=== PATIENT | male | born 1990 | race Caucasian/White ===

== ENCOUNTER 2017-12-08 15:30 | Outpatient (RCR) | payer SELFPAY ==
[2017-11-24 15:05] VITALS: BP 118/62; PULSE 70; RESP 18; TEMP 37.1
--- NOTE | 2017-11-24 16:14 | PCM.WC.HP ---
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 Has been applying neosporin and dry dressing daily. Thought originally that the area was present due to a bad sunburn, however ulcer is a classic venous leg ulcer. Pt has a family history of varicose veins including brothers and parents. Has never had vascular testing. Did have x-rays, and we will get the results of those from the outside facility. Past Medical History Past Medical History: Chronic Problems Localized edema (Chronic) Surgical History: noncontributory Allergies/Adverse Reactions: Allergies amoxicillin [From Augmentin] Adverse Reaction (Verified 11/24/17 15:28) Unknown clavulanic acid [From Augmentin] Adverse Reaction (Verified 11/24/17 15:28) Unknown Home Medications: Ambulatory Orders Medication Instructions Recorded Citalopram [Celexa] 40 mg PO DAILY 11/24/17 Lives: With Family Smoking Status: Never smoker Tobacco Use: Non-smoker Alcohol: Rare Drugs: None Review of Systems Constitutional: Denies: Chills, Fever, Weight Change Eyes: Denies: Pain, Vision Change HEENT: Denies: Difficulty Hearing, Difficulty Swallowing, Sinus Congestion Cardiovascular: Reports: Edema - RLE. Denies: Chest Pain, Palpitations Respiratory: Denies: Cough, Shortness of Breath Gastrointestinal: Denies: Diarrhea, Nausea, Vomiting Genitourinary: Denies: Dysuria, Hematuria Skin: Reports: Wounds - R calf Psychiatric: Reports: Anxiety Endocrine: Denies: Heat/ Cold Intolerance, Polydipsia, Polyuria Hematologic/ Lymphatic: Denies: Easy Bruising, Easy Bleeding, Hx of blood clot - Physical Exam Vital Signs Temp Pulse Resp BP 98.8 F 70 18 118/62 11/24/17 15:05 11/24/17 15:05 11/24/17 15:05 11/24/17 15:05 General: Alert, Oriented x3, Cooperative, No apparent distress Abdomen: Soft, Non Tender, Non-Distended Extremities: No clubbing, No cyanosis, Capillary Refill Less than 3 Seconds, No Calf Tenderness, Edema - RLE, Peripheral Pulses Normal Skin: Ulcer/ Wound - R calf x 2 with no erythema, no calor, no purulent drainage, no malodor, no TTP of ulcer or reyna-ulcer area. No clinical signs of acute bacterial infection noted. See wound/edema assessment below. Wound Measurements and Assessment WC - Nurse 1 - General Ulcer Measurement Start: 11/24/17 15:05 Freq: Status: Active Protocol: Activity Type Activity Date Activity User E-Sign Co-Sign Detail Recorded Client Recorded Date Recorded By Document 11/24/17 15:05 DL [id number] 11/24/17 15:20 DL 11/24/17 15:05 Wound Center Nurse 1 [Ulcer Assessment Protocol: BILL.WD.LOC] #2 R Med Bell inf -Current Size (cm) - Length 2 -Current Size (cm) - Width 1.4 -Current Size (cm) - Depth 0.2 -Total Square Cm 2.8 -Photo Taken Yes -Exudate Amt Medium (34-66%) -Exudate Type Sanguineous -Wound Margin Distinct, Outline Attached -Granulation Amt Medium (34-66%) -Granulation Quality Red -Necrosis Amt Medium (34-66%) -Necrotic Tissue Type Adherent Slough -Structure Exposed N/A -Texture (Reyna-wound Skin Appearance) Scarring -Moisture (Reyna-wound Skin Appearance No Abnormality ) -Color (Reyna-wound Skin Appearance) Erythema -Temperature (Reyna-wound Skin No Abnormality Appearance) (Pt Warm) -Ulcer Cleansing Wound Cleanser -Foul Odor after Cleansing No -Anesthetic Used 4% Lidocaine Solution #1 R Med Sup -Current Size (cm) - Length 0.7 -Current Size (cm) - Width 7 -Current Size (cm) - Depth 0.1 -Total Square Cm 4.9 -Photo Taken Yes -Exudate Amt Small (1-33%) -Exudate Type Serosanguineous -Wound Margin Distinct, Outline Attached -Granulation Amt None Present (0 %) -Necrosis Amt Large (67-100%) -Necrotic Tissue Type Adherent Slough -Structure Exposed N/A -Texture (Reyna-wound Skin Appearance) Scarring -Moisture (Reyna-wound Skin Appearance No Abnormality ) -Color (Reyna-wound Skin Appearance) Erythema Rubor -Temperature (Reyna-wound Skin No Abnormality Appearance) (Pt Warm) -Ulcer Cleansing Wound Cleanser -Foul Odor after Cleansing No -Anesthetic Used 4% Lidocaine Solution [Edema Assessment] -Right Calf (cm) 32.9 -Right Ankle (cm) 21.1 -Left Calf (cm) 31.7 -Left Ankle (cm) 20.2 Musculoskeletal: No Tenderness to Palpation of Joints or Extremities, No Muscle Wasting Neurological: Deep Tendon Reflexes 2+/4 and Symmetrical, Neuro grossly intact, Motor Exam 5/5 strength throughout, Muscle tone normal, Sensory exam intact to light touch and pain, Coordination normal, Gait narrow based and stable Psych/Mental Status: Alert and oriented to time, place, person, mood and affect - wnl Debridement Note Wound debrided: R calf x 2 Laterality: Right Wound Grade/Stage: full thickness VLU Type of Debridement: Excisional debridement Anesthesia Used: 4% Lidocaine Solution Depth: Down to and including healthy tissue, in the subcutaneous layer Percentage of wound debrided: 100 Instrument Used: 3mm curette Tissue Removed: fibrous slough Severity: Fat Layer Exposed Amount of bleeding with debridement: Mild Bleeding Controlled with: Pressure, Compression and gauze Patient tolerated procedure well Assessment/Plan Active Problems 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 SQ/excisional debridment R calf ulcers x 2 performed as above. Venous duplex RLE ordered. Screening MADISON to be done in clinic next week. Stop neosporin, start clau, adaptic, dry dressing 3x/week. Keep dry in shower, wash separately with dsg changes. Discussed importance of leg elevation, avoiding idle sitting or standing, increased activity, and taking anti-inflammatories for pain. Pt is not overweight. Venous insufficiency is likely hereditary. Moderate spandagrip until after vascular testing. Pt will need referral to vascular specialist and/or compression stockings of at least 20-30 mmHg after ulcer heals. Monitor for redness, pus, malodor, warmth, pain, inc swelling as well as for N/V/F/C/calf pain/chest pain/SOB and go to the ED with these.
--- NOTE | 2017-11-24 16:25 | HP.PCM_ITS ---
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 Has been applying neosporin and dry dressing daily. Thought originally that the area was present due to a bad sunburn, however ulcer is a classic venous leg ulcer. Pt has a family history of varicose veins including brothers and parents. Has never had vascular testing. Did have x-rays, and we will get the results of those from the outside facility. Past Medical History Past Medical History: Chronic Problems Localized edema (Chronic) Surgical History: noncontributory Allergies/Adverse Reactions: Allergies amoxicillin [From Augmentin] Adverse Reaction (Verified 11/24/17 15:28) Unknown clavulanic acid [From Augmentin] Adverse Reaction (Verified 11/24/17 15:28) Unknown Home Medications: Ambulatory Orders Medication Instructions Recorded Citalopram [Celexa] 40 mg PO DAILY 11/24/17 Lives: With Family Smoking Status: Never smoker Tobacco Use: Non-smoker Alcohol: Rare Drugs: None Review of Systems Constitutional: Denies: Chills, Fever, Weight Change Eyes: Denies: Pain, Vision Change HEENT: Denies: Difficulty Hearing, Difficulty Swallowing, Sinus Congestion Cardiovascular: Reports: Edema - RLE. Denies: Chest Pain, Palpitations Respiratory: Denies: Cough, Shortness of Breath Gastrointestinal: Denies: Diarrhea, Nausea, Vomiting Genitourinary: Denies: Dysuria, Hematuria Skin: Reports: Wounds - R calf Psychiatric: Reports: Anxiety Endocrine: Denies: Heat/ Cold Intolerance, Polydipsia, Polyuria Hematologic/ Lymphatic: Denies: Easy Bruising, Easy Bleeding, Hx of blood clot - Physical Exam Vital Signs Temp Pulse Resp BP 98.8 F 70 18 118/62 11/24/17 15:05 11/24/17 15:05 11/24/17 15:05 11/24/17 15:05 General: Alert, Oriented x3, Cooperative, No apparent distress Abdomen: Soft, Non Tender, Non-Distended Extremities: No clubbing, No cyanosis, Capillary Refill Less than 3 Seconds, No Calf Tenderness, Edema - RLE, Peripheral Pulses Normal Skin: Ulcer/ Wound - R calf x 2 with no erythema, no calor, no purulent drainage , no malodor, no TTP of ulcer or reyna-ulcer area. No clinical signs of acute bacterial infection noted. See wound/edema assessment below. Wound Measurements and Assessment WC - Nurse 1 - General Ulcer Measurement Start: 11/24/17 15:05 Freq: Status: Active Protocol: Activity Type Activity Date Activity User E-Sign Co-Sign Detail Recorded Client Recorded Date Recorded By Document 11/24/17 15:05 DL [id number] 11/24/17 15:20 DL 11/24/17 15:05 Wound Center Nurse 1 [Ulcer Assessment Protocol: BILL.WD.LOC] #2 R Med Bell inf -Current Size (cm) - Length 2 -Current Size (cm) - Width 1.4 -Current Size (cm) - Depth 0.2 -Total Square Cm 2.8 -Photo Taken Yes -Exudate Amt Medium (34-66%) -Exudate Type Sanguineous -Wound Margin Distinct, Outline Attached -Granulation Amt Medium (34-66%) -Granulation Quality Red -Necrosis Amt Medium (34-66%) -Necrotic Tissue Type Adherent Slough -Structure Exposed N/A -Texture (Reyna-wound Skin Appearance) Scarring -Moisture (Reyna-wound Skin Appearance No Abnormality ) -Color (Reyna-wound Skin Appearance) Erythema -Temperature (Reyna-wound Skin No Abnormality Appearance) (Pt Warm) -Ulcer Cleansing Wound Cleanser -Foul Odor after Cleansing No -Anesthetic Used 4% Lidocaine Solution #1 R Med Sup -Current Size (cm) - Length 0.7 -Current Size (cm) - Width 7 -Current Size (cm) - Depth 0.1 -Total Square Cm 4.9 -Photo Taken Yes -Exudate Amt Small (1-33%) -Exudate Type Serosanguineous -Wound Margin Distinct, Outline Attached -Granulation Amt None Present (0 %) -Necrosis Amt Large (67-100%) -Necrotic Tissue Type Adherent Slough -Structure Exposed N/A -Texture (Reyna-wound Skin Appearance) Scarring -Moisture (Reyna-wound Skin Appearance No Abnormality ) -Color (Reyna-wound Skin Appearance) Erythema Rubor -Temperature (Reyna-wound Skin No Abnormality Appearance) (Pt Warm) -Ulcer Cleansing Wound Cleanser -Foul Odor after Cleansing No -Anesthetic Used 4% Lidocaine Solution [Edema Assessment] -Right Calf (cm) 32.9 -Right Ankle (cm) 21.1 -Left Calf (cm) 31.7 -Left Ankle (cm) 20.2 Musculoskeletal: No Tenderness to Palpation of Joints or Extremities, No Muscle Wasting Neurological: Deep Tendon Reflexes 2+/4 and Symmetrical, Neuro grossly intact, Motor Exam 5/5 strength throughout, Muscle tone normal, Sensory exam intact to light touch and pain, Coordination normal, Gait narrow based and stable Psych/Mental Status: Alert and oriented to time, place, person, mood and affect - wnl Debridement Note Wound debrided: R calf x 2 Laterality: Right Wound Grade/Stage: full thickness VLU Type of Debridement: Excisional debridement Anesthesia Used: 4% Lidocaine Solution Depth: Down to and including healthy tissue, in the subcutaneous layer Percentage of wound debrided: 100 Instrument Used: 3mm curette Tissue Removed: fibrous slough Severity: Fat Layer Exposed Amount of bleeding with debridement: Mild Bleeding Controlled with: Pressure, Compression and gauze Patient tolerated procedure well Assessment/Plan Active Problems 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 SQ/excisional debridment R calf ulcers x 2 performed as above. Venous duplex RLE ordered. Screening MADISON to be done in clinic next week. Stop neosporin, start clau, adaptic, dry dressing 3x/week. Keep dry in shower, wash separately with dsg changes. Discussed importance of leg elevation, avoiding idle sitting or standing, increased activity, and taking anti- inflammatories for pain. Pt is not overweight. Venous insufficiency is likely hereditary. Moderate spandagrip until after vascular testing. Pt will need referral to vascular specialist and/or compression stockings of at least 20-30 mmHg after ulcer heals. Monitor for redness, pus, malodor, warmth, pain, inc swelling as well as for N/V/F/C/calf pain/chest pain/SOB and go to the ED with these.
[2017-12-01 13:02] VITALS: BP 118/65; PULSE 101; RESP 16; TEMP 36.9
--- NOTE | 2017-12-01 15:03 | PCM.WC.PN ---
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 Has been applying neosporin and dry dressing daily. Thought originally that the area was present due to a bad sunburn, however ulcer is a classic venous leg ulcer. Pt has a family history of varicose veins including brothers and parents. Has never had vascular testing. Did have x-rays, and we will get the results of those from the outside facility. 12/01-Ulcers improved. Tolerated moderate spandagrip size E and clau well. Refuses to get venous duplex for unknown reasons. Denies pus, malodor, warmth, pain. Denies N/V/F/C. Progress of Wound: Improved. - Physical Exam Vital Signs Temp Pulse Resp BP 98.4 F 101 H 16 118/65 12/01/17 13:02 12/01/17 13:02 12/01/17 13:02 12/01/17 13:02 General: Alert, Oriented x3, Cooperative, No apparent distress Skin: Ulcer/ Wound - R calf with no erythema, no malodor, no pus, no TTP, no warmth. No clinical signs of acute bacterial infection noted. See wound/edema assessment below. Wound Measurements and Assessment BILL - Nurse 1 - General Ulcer Measurement Start: 11/24/17 15:05 Freq: Status: Active Protocol: Activity Type Activity Date Activity User E-Sign Co-Sign Detail Recorded Client Recorded Date Recorded By Document 12/01/17 13:02 DV [id number] 12/01/17 13:10 DV 12/01/17 13:02 Wound Center Nurse 1 [Ulcer Assessment Protocol: BILL.WD.LOC] #2 Right Venegas-Inferior -Combined with other wound No -Current Size (cm) - Length 1.8 -Current Size (cm) - Width 1.1 -Current Size (cm) - Depth 0.2 -Total Square Cm 1.98 -Photo Taken No -Tunneling No -Circular Undermining No -Classification - Thickness Full Thickness without Exposed Support Structure -Exudate Amt Small (1-33%) -Exudate Type Serosanguineous -Wound Margin Distinct, Outline Attached -Granulation Amt Small (1-33%) -Granulation Quality Red -Slough/Fibrin Yes -Necrosis Amt Medium (34-66%) -Necrotic Tissue Type Adherent Slough -Structure Exposed None/Limited to Skin Breakdown -Texture (Reyna-wound Skin Appearance) Assessed Scarring -Moisture (Reyna-wound Skin Appearance Assessed ) Weeping -Color (Reyna-wound Skin Appearance) Assessed Hemosiderin Staining -Temperature (Reyna-wound Skin No Abnormality Appearance) (Pt Warm) -Ulcer Cleansing Rinsed/ Irrigated with Saline -Foul Odor after Cleansing No -Anesthetic Used 4% Lidocaine Solution #1 Right Venegas- Superior -Combined with other wound No -Current Size (cm) - Length 0.4 -Current Size (cm) - Width 0.2 -Current Size (cm) - Depth 0.1 -Total Square Cm 0.08 -Photo Taken No -Epithelialization None Present -Tunneling No -Undermining/Tunneling No -Circular Undermining No -Classification - Thickness Full Thickness without Exposed Support Structure -Exudate Amt Small (1-33%) -Exudate Type Serosanguineous -Wound Margin Distinct, Outline Attached -Granulation Amt None Present (0 %) -Granulation Quality N/A -Slough/Fibrin Yes -Necrosis Amt Small (1-33%) -Necrotic Tissue Type Adherent Slough -Structure Exposed None/Limited to Skin Breakdown -Texture (Reyna-wound Skin Appearance) Assessed Scarring -Moisture (Reyna-wound Skin Appearance Assessed ) Weeping -Color (Reyna-wound Skin Appearance) Assessed Hemosiderin Staining -Temperature (Reyna-wound Skin No Abnormality Appearance) (Pt Warm) -Tenderness on Palpation (Reyna-wound No Skin Appearance) -Ulcer Cleansing Rinsed/ Irrigated with Saline -Foul Odor after Cleansing No -Anesthetic Used 4% Lidocaine Solution [Edema Assessment] -Lower Limb Edema Present No -Right Calf (cm) 31.0 -Right Ankle (cm) 19.6 WC - Nurse 2 - General Ulcer CM Notes Start: 11/24/17 15:05 Freq: Status: Active Protocol: Activity Type Activity Date Activity User E-Sign Co-Sign Detail Recorded Client Recorded Date Recorded By Document 12/01/17 13:32 MW [id number] 12/01/17 13:35 MW 12/01/17 13:32 Wound Center Nurse 2 [Procedure/Treatment] #2 Right Venegas-Inferior -Time 13:32 -Correct Patient Yes -Correct Side, Site, Position Yes -Correct Procedure Yes -Procedure Performed Yes -Type of Procedure Debridement -Clinical Debridement Subcutaneous -Post Debridement Size (cm) - Length 1.6 -Post Debridement Size (cm) - Width 1.2 -Post Debridement Size (cm) - Depth 0.2 -Total Square Cm 1.92 -Wound/Ulcer Outcome Not Healed -Ulcer Cleansing Rinsed/ Irrigated with Saline -Foul Odor after Cleansing No -Type of bioengineered Tissue Apligraf -Bleeding Controlled with Pressure -Treatment Response Procedure Tolerated Well #1 Right Venegas- Superior -Time 13:32 -Correct Patient Yes -Correct Side, Site, Position Yes -Correct Procedure Yes -Procedure Performed Yes -Type of Procedure Debridement -Clinical Debridement Subcutaneous -Post Debridement Size (cm) - Length 0.5 -Post Debridement Size (cm) - Width 0.2 -Post Debridement Size (cm) - Depth 0.1 -Total Square Cm 0.10 -Wound/Ulcer Outcome Not Healed -Ulcer Cleansing Rinsed/ Irrigated with Saline -Foul Odor after Cleansing No -Bioengineered Tissue No -Cetacaine [place] No -Bleeding Controlled with Pressure -Treatment Response Procedure Tolerated Well [See Physician Procedure note for Specifics] Pain Scale: 0-10 Numeric [Pain] -Is Patient Pain Free? Yes Debridement Note Post-Debridement Measurements/Treatment WC - Nurse 2 - General Ulcer CM Notes Start: 11/24/17 15:05 Freq: Status: Active Protocol: Activity Type Activity Date Activity User E-Sign Co-Sign Detail Recorded Client Recorded Date Recorded By Document 11/24/17 15:58 MW [id number] 11/24/17 16:14 MW Document 12/01/17 13:32 MW [id number] 12/01/17 13:35 MW 11/24/17 12/01/17 15:58 13:32 Wound Center Nurse 2 #2 Right Venegas-Inferior -Time 15:59 13:32 -Correct Patient Yes Yes -Correct Side, Site, Position Yes Yes -Correct Procedure Yes Yes -Procedure Performed Yes Yes -Type of Procedure Debridement Debridement -Clinical Debridement Subcutaneous Subcutaneous -Post Debridement Size (cm) - Length 0.6 1.6 -Post Debridement Size (cm) - Width 0.4 1.2 -Post Debridement Size (cm) - Depth 0.1 0.2 -Total Square Cm 0.24 1.92 -Wound/Ulcer Outcome Not Healed Not Healed -Ulcer Cleansing Rinsed/ Rinsed/ Irrigated with Irrigated with Saline Saline -Foul Odor after Cleansing No No -Bioengineered Tissue No -Type of bioengineered Tissue Apligraf -Cetacaine [place] No -Bleeding Controlled with Pressure Pressure -Treatment Response Procedure Procedure Tolerated Well Tolerated Well #1 Right Venegas- Superior -Time 16:01 13:32 -Correct Patient Yes Yes -Correct Side, Site, Position Yes Yes -Correct Procedure Yes Yes -Procedure Performed Yes Yes -Type of Procedure Debridement Debridement -Clinical Debridement Subcutaneous Subcutaneous -Post Debridement Size (cm) - Length 2.2 0.5 -Post Debridement Size (cm) - Width 1.5 0.2 -Post Debridement Size (cm) - Depth 0.2 0.1 -Total Square Cm 3.30 0.10 -Wound/Ulcer Outcome Not Healed Not Healed -Ulcer Cleansing Rinsed/ Rinsed/ Irrigated with Irrigated with Saline Saline -Foul Odor after Cleansing No No -Bioengineered Tissue No No -Cetacaine [place] No No -Bleeding Controlled with Pressure Pressure -Treatment Response Procedure Procedure Tolerated Well Tolerated Well Pain Scale: 0-10 Numeric Is Patient Pain Free? 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 Patient refusing all vascular testing. Improving. Cont clau, adaptic, dry dressing 3x/week. Keep dry in shower, wash separately with dsg changes. Discussed importance of leg elevation, avoiding idle sitting or standing, increased activity, and taking anti-inflammatories for pain. Pt is not overweight. Venous insufficiency is likely hereditary. Increase to size D spandagrip. Pt will need referral to vascular specialist and/or compression stockings of at least 20-30 mmHg after ulcer heals. Pt currently refusing vascular testing. Monitor for redness, pus, malodor, warmth, pain, inc swelling as well as for N/V/F/C/calf pain/chest pain/SOB and go to the ED with these.
--- NOTE | 2017-12-01 15:09 | PN.PCM_ITS ---
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 Has been applying neosporin and dry dressing daily. Thought originally that the area was present due to a bad sunburn, however ulcer is a classic venous leg ulcer. Pt has a family history of varicose veins including brothers and parents. Has never had vascular testing. Did have x-rays, and we will get the results of those from the outside facility. 12/01-Ulcers improved. Tolerated moderate spandagrip size E and clau well. Refuses to get venous duplex for unknown reasons. Denies pus, malodor, warmth, pain. Denies N/V/F/C. Progress of Wound: Improved. - Physical Exam Vital Signs Temp Pulse Resp BP 98.4 F 101 H 16 118/65 12/01/17 13:02 12/01/17 13:02 12/01/17 13:02 12/01/17 13:02 General: Alert, Oriented x3, Cooperative, No apparent distress Skin: Ulcer/ Wound - R calf with no erythema, no malodor, no pus, no TTP, no warmth. No clinical signs of acute bacterial infection noted. See wound/edema assessment below. Wound Measurements and Assessment BILL - Nurse 1 - General Ulcer Measurement Start: 11/24/17 15:05 Freq: Status: Active Protocol: Activity Type Activity Date Activity User E-Sign Co-Sign Detail Recorded Client Recorded Date Recorded By Document 12/01/17 13:02 DV [id number] 12/01/17 13:10 DV 12/01/17 13:02 Wound Center Nurse 1 [Ulcer Assessment Protocol: BILL.WD.LOC] #2 Right Venegas-Inferior -Combined with other wound No -Current Size (cm) - Length 1.8 -Current Size (cm) - Width 1.1 -Current Size (cm) - Depth 0.2 -Total Square Cm 1.98 -Photo Taken No -Tunneling No -Circular Undermining No -Classification - Thickness Full Thickness without Exposed Support Structure -Exudate Amt Small (1-33%) -Exudate Type Serosanguineous -Wound Margin Distinct, Outline Attached -Granulation Amt Small (1-33%) -Granulation Quality Red -Slough/Fibrin Yes -Necrosis Amt Medium (34-66%) -Necrotic Tissue Type Adherent Slough -Structure Exposed None/Limited to Skin Breakdown -Texture (Reyna-wound Skin Appearance) Assessed Scarring -Moisture (Reyna-wound Skin Appearance Assessed ) Weeping -Color (Reyna-wound Skin Appearance) Assessed Hemosiderin Staining -Temperature (Reyna-wound Skin No Abnormality Appearance) (Pt Warm) -Ulcer Cleansing Rinsed/ Irrigated with Saline -Foul Odor after Cleansing No -Anesthetic Used 4% Lidocaine Solution #1 Right Venegas- Superior -Combined with other wound No -Current Size (cm) - Length 0.4 -Current Size (cm) - Width 0.2 -Current Size (cm) - Depth 0.1 -Total Square Cm 0.08 -Photo Taken No -Epithelialization None Present -Tunneling No -Undermining/Tunneling No -Circular Undermining No -Classification - Thickness Full Thickness without Exposed Support Structure -Exudate Amt Small (1-33%) -Exudate Type Serosanguineous -Wound Margin Distinct, Outline Attached -Granulation Amt None Present (0 %) -Granulation Quality N/A -Slough/Fibrin Yes -Necrosis Amt Small (1-33%) -Necrotic Tissue Type Adherent Slough -Structure Exposed None/Limited to Skin Breakdown -Texture (Reyna-wound Skin Appearance) Assessed Scarring -Moisture (Reyna-wound Skin Appearance Assessed ) Weeping -Color (Reyna-wound Skin Appearance) Assessed Hemosiderin Staining -Temperature (Reyna-wound Skin No Abnormality Appearance) (Pt Warm) -Tenderness on Palpation (Reyna-wound No Skin Appearance) -Ulcer Cleansing Rinsed/ Irrigated with Saline -Foul Odor after Cleansing No -Anesthetic Used 4% Lidocaine Solution [Edema Assessment] -Lower Limb Edema Present No -Right Calf (cm) 31.0 -Right Ankle (cm) 19.6 WC - Nurse 2 - General Ulcer CM Notes Start: 11/24/17 15:05 Freq: Status: Active Protocol: Activity Type Activity Date Activity User E-Sign Co-Sign Detail Recorded Client Recorded Date Recorded By Document 12/01/17 13:32 MW [id number] 12/01/17 13:35 MW 12/01/17 13:32 Wound Center Nurse 2 [Procedure/Treatment] #2 Right Venegas-Inferior -Time 13:32 -Correct Patient Yes -Correct Side, Site, Position Yes -Correct Procedure Yes -Procedure Performed Yes -Type of Procedure Debridement -Clinical Debridement Subcutaneous -Post Debridement Size (cm) - Length 1.6 -Post Debridement Size (cm) - Width 1.2 -Post Debridement Size (cm) - Depth 0.2 -Total Square Cm 1.92 -Wound/Ulcer Outcome Not Healed -Ulcer Cleansing Rinsed/ Irrigated with Saline -Foul Odor after Cleansing No -Type of bioengineered Tissue Apligraf -Bleeding Controlled with Pressure -Treatment Response Procedure Tolerated Well #1 Right Venegas- Superior -Time 13:32 -Correct Patient Yes -Correct Side, Site, Position Yes -Correct Procedure Yes -Procedure Performed Yes -Type of Procedure Debridement -Clinical Debridement Subcutaneous -Post Debridement Size (cm) - Length 0.5 -Post Debridement Size (cm) - Width 0.2 -Post Debridement Size (cm) - Depth 0.1 -Total Square Cm 0.10 -Wound/Ulcer Outcome Not Healed -Ulcer Cleansing Rinsed/ Irrigated with Saline -Foul Odor after Cleansing No -Bioengineered Tissue No -Cetacaine [place] No -Bleeding Controlled with Pressure -Treatment Response Procedure Tolerated Well [See Physician Procedure note for Specifics] Pain Scale: 0-10 Numeric [Pain] -Is Patient Pain Free? Yes Debridement Note Post-Debridement Measurements/Treatment WC - Nurse 2 - General Ulcer CM Notes Start: 11/24/17 15:05 Freq: Status: Active Protocol: Activity Type Activity Date Activity User E-Sign Co-Sign Detail Recorded Client Recorded Date Recorded By Document 11/24/17 15:58 MW [id number] 11/24/17 16:14 MW Document 12/01/17 13:32 MW [id number] 12/01/17 13:35 MW 11/24/17 12/01/17 15:58 13:32 Wound Center Nurse 2 #2 Right Venegas-Inferior -Time 15:59 13:32 -Correct Patient Yes Yes -Correct Side, Site, Position Yes Yes -Correct Procedure Yes Yes -Procedure Performed Yes Yes -Type of Procedure Debridement Debridement -Clinical Debridement Subcutaneous Subcutaneous -Post Debridement Size (cm) - Length 0.6 1.6 -Post Debridement Size (cm) - Width 0.4 1.2 -Post Debridement Size (cm) - Depth 0.1 0.2 -Total Square Cm 0.24 1.92 -Wound/Ulcer Outcome Not Healed Not Healed -Ulcer Cleansing Rinsed/ Rinsed/ Irrigated with Irrigated with Saline Saline -Foul Odor after Cleansing No No -Bioengineered Tissue No -Type of bioengineered Tissue Apligraf -Cetacaine [place] No -Bleeding Controlled with Pressure Pressure -Treatment Response Procedure Procedure Tolerated Well Tolerated Well #1 Right [place]- Superior -Time 16:01 13:32 -Correct Patient Yes Yes -Correct Side, Site, Position Yes Yes -Correct Procedure Yes Yes -Procedure Performed Yes Yes -Type of Procedure Debridement Debridement -Clinical Debridement Subcutaneous Subcutaneous -Post Debridement Size (cm) - Length 2.2 0.5 -Post Debridement Size (cm) - Width 1.5 0.2 -Post Debridement Size (cm) - Depth 0.2 0.1 -Total Square Cm 3.30 0.10 -Wound/Ulcer Outcome Not Healed Not Healed -Ulcer Cleansing Rinsed/ Rinsed/ Irrigated with Irrigated with Saline Saline -Foul Odor after Cleansing No No -Bioengineered Tissue No No -Cetacaine [place] No No -Bleeding Controlled with Pressure Pressure -Treatment Response Procedure Procedure Tolerated Well Tolerated Well Pain Scale: 0-10 Numeric Is Patient Pain Free? 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 Patient refusing all vascular testing. Improving. Cont clau, adaptic, dry dressing 3x/week. Keep dry in shower, wash separately with dsg changes. Discussed importance of leg elevation, avoiding idle sitting or standing, increased activity, and taking anti-inflammatories for pain. Pt is not overweight. Venous insufficiency is likely hereditary. Increase to size D spandagrip. Pt will need referral to vascular specialist and/or compression stockings of at least 20-30 mmHg after ulcer heals. Pt currently refusing vascular testing. Monitor for redness, pus, malodor, warmth, pain, inc swelling as well as for N/V /F/C/calf pain/chest pain/SOB and go to the ED with these.
[2017-12-08 15:22] VITALS: BP 114/67; PULSE 74; RESP 16; TEMP 36.5
--- NOTE | 2017-12-08 16:23 | PCM.WC.PN ---
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 Has been applying neosporin and dry dressing daily. Thought originally that the area was present due to a bad sunburn, however ulcer is a classic venous leg ulcer. Pt has a family history of varicose veins including brothers and parents. Has never had vascular testing. Did have x-rays, and we will get the results of those from the outside facility. 12/01-Ulcers improved. Tolerated moderate spandagrip size E and clau well. Refuses to get venous duplex for unknown reasons. Denies pus, malodor, warmth, pain. Denies N/V/F/C. 12/08--Ulcers improved. Tolerated spandagrip size D and clau well. Refuses to get venous duplex for unknown reasons. Denies pus, malodor, warmth, pain. Denies N/V/F/C. Progress of Wound: Improved. - Physical Exam Vital Signs Temp Pulse Resp BP 97.7 F L 74 16 114/67 12/08/17 15:22 12/08/17 15:22 12/08/17 15:22 12/08/17 15:22 General: Alert, Oriented x3, Cooperative, No apparent distress Skin: Ulcer/ Wound - R calf x 2 with no erythema, no pus, no malodor, no increased warmth, no TTP of wound or indu-wound area. No clinical signs of acute bacterial infection noted. See nurse's wound assessment. Wound Measurements and Assessment WC - Nurse 1 - General Ulcer Measurement Start: 11/24/17 15:05 Freq: Status: Active Protocol: Activity Type Activity Date Activity User E-Sign Co-Sign Detail Recorded Client Recorded Date Recorded By Document 12/08/17 15:22 DL [id number] 12/08/17 15:29 DL 12/08/17 15:22 Wound Center Nurse 1 [Ulcer Assessment Protocol: WC.WD.LOC] #2 Right Bell-Inferior -Current Size (cm) - Length 1.6 -Current Size (cm) - Width 1 -Current Size (cm) - Depth 0.1 -Total Square Cm 1.6 -Photo Taken No -Exudate Amt Small (1-33%) -Exudate Type Serosanguineous -Wound Margin Distinct, Outline Attached -Granulation Amt Large (67-100%) -Granulation Quality Red -Necrosis Amt Small (1-33%) -Necrotic Tissue Type Adherent Slough -Structure Exposed N/A -Texture (Indu-wound Skin Appearance) Scarring -Moisture (Indu-wound Skin Appearance No Abnormality ) -Color (Indu-wound Skin Appearance) Hemosiderin Staining -Temperature (Indu-wound Skin No Abnormality Appearance) (Pt Warm) -Ulcer Cleansing Rinsed/ Irrigated with Saline -Foul Odor after Cleansing No -Anesthetic Used 4% Lidocaine Solution #1 Right Bell- Superior -Current Size (cm) - Length 0.5 -Current Size (cm) - Width 0.3 -Current Size (cm) - Depth 0.1 -Total Square Cm 0.15 -Photo Taken No -Exudate Amt None Present (0 %) -Wound Margin Thickened -Granulation Amt None Present (0 %) -Necrosis Amt Large (67-100%) -Necrotic Tissue Type Adherent Slough -Structure Exposed N/A -Texture (Indu-wound Skin Appearance) Scarring -Moisture (Idnu-wound Skin Appearance No Abnormality ) -Color (Indu-wound Skin Appearance) Hemosiderin Staining -Temperature (Indu-wound Skin No Abnormality Appearance) (Pt Warm) -Ulcer Cleansing Rinsed/ Irrigated with Saline -Foul Odor after Cleansing No -Anesthetic Used 4% Lidocaine Solution [Edema Assessment] -Right Calf (cm) 30.5 -Right Ankle (cm) 19.4 WC - Nurse 2 - General Ulcer CM Notes Start: 11/24/17 15:05 Freq: Status: Active Protocol: Activity Type Activity Date Activity User E-Sign Co-Sign Detail Recorded Client Recorded Date Recorded By Document 12/08/17 15:58 MW [id number] 12/08/17 16:00 MW 12/08/17 15:58 Wound Center Nurse 2 [Procedure/Treatment] #2 Right Bell-Inferior -Time 15:59 -Correct Patient Yes -Correct Side, Site, Position Yes -Correct Procedure Yes -Procedure Performed Yes -Type of Procedure Debridement -Clinical Debridement Subcutaneous -Post Debridement Size (cm) - Length 1.4 -Post Debridement Size (cm) - Width 1.0 -Post Debridement Size (cm) - Depth 0.1 -Total Square Cm 1.40 -Wound/Ulcer Outcome Not Healed -Ulcer Cleansing Rinsed/ Irrigated with Saline -Foul Odor after Cleansing No -Bioengineered Tissue No -Cetacaine [place] No -Bleeding Controlled with Pressure -Treatment Response Procedure Tolerated Well #1 Right Bell- Superior -Time 15:59 -Correct Patient Yes -Correct Side, Site, Position Yes -Correct Procedure Yes -Procedure Performed Yes -Type of Procedure Debridement -Clinical Debridement Subcutaneous -Post Debridement Size (cm) - Length 0.4 -Post Debridement Size (cm) - Width 0.3 -Post Debridement Size (cm) - Depth 0.1 -Total Square Cm 0.12 -Wound/Ulcer Outcome Not Healed -Ulcer Cleansing Rinsed/ Irrigated with Saline -Foul Odor after Cleansing No -Bioengineered Tissue No -Cetacaine [place] No -Bleeding Controlled with Pressure -Treatment Response Procedure Tolerated Well [See Physician Procedure note for Specifics] Pain Scale: 0-10 Numeric [Pain] -Is Patient Pain Free? Yes Debridement Note Post-Debridement Measurements/Treatment WC - Nurse 2 - General Ulcer CM Notes Start: 11/24/17 15:05 Freq: Status: Active Protocol: Activity Type Activity Date Activity User E-Sign Co-Sign Detail Recorded Client Recorded Date Recorded By Document 11/24/17 15:58 MW [id number] 11/24/17 16:14 MW Document 12/01/17 13:32 MW [id number] 12/01/17 13:35 MW Document 12/08/17 15:58 MW [id number] 12/08/17 16:00 MW 11/24/17 12/01/17 12/08/17 15:58 13:32 15:58 Wound Center Nurse 2 #2 Right Bell-Inferior -Time 15:59 13:32 15:59 -Correct Patient Yes Yes Yes -Correct Side, Site, Position Yes Yes Yes -Correct Procedure Yes Yes Yes -Procedure Performed Yes Yes Yes -Type of Procedure Debridement Debridement Debridement -Clinical Debridement Subcutaneous Subcutaneous Subcutaneous -Post Debridement Size (cm) - Length 0.6 1.6 1.4 -Post Debridement Size (cm) - Width 0.4 1.2 1.0 -Post Debridement Size (cm) - Depth 0.1 0.2 0.1 -Total Square Cm 0.24 1.92 1.40 -Wound/Ulcer Outcome Not Healed Not Healed Not Healed -Ulcer Cleansing Rinsed/ Rinsed/ Rinsed/ Irrigated with Irrigated with Irrigated with Saline Saline Saline -Foul Odor after Cleansing No No No -Bioengineered Tissue No No -Type of bioengineered Tissue Apligraf -Cetacaine [place] No No -Bleeding Controlled with Pressure Pressure Pressure -Treatment Response Procedure Procedure Procedure Tolerated Well Tolerated Well Tolerated Well #1 Right Bell- Superior -Time 16:01 13:32 15:59 -Correct Patient Yes Yes Yes -Correct Side, Site, Position Yes Yes Yes -Correct Procedure Yes Yes Yes -Procedure Performed Yes Yes Yes -Type of Procedure Debridement Debridement Debridement -Clinical Debridement Subcutaneous Subcutaneous Subcutaneous -Post Debridement Size (cm) - Length 2.2 0.5 0.4 -Post Debridement Size (cm) - Width 1.5 0.2 0.3 -Post Debridement Size (cm) - Depth 0.2 0.1 0.1 -Total Square Cm 3.30 0.10 0.12 -Wound/Ulcer Outcome Not Healed Not Healed Not Healed -Ulcer Cleansing Rinsed/ Rinsed/ Rinsed/ Irrigated with Irrigated with Irrigated with Saline Saline Saline -Foul Odor after Cleansing No No No -Bioengineered Tissue No No No -Cetacaine [place] No No No -Bleeding Controlled with Pressure Pressure Pressure -Treatment Response Procedure Procedure Procedure Tolerated Well Tolerated Well Tolerated Well Pain Scale: 0-10 Numeric Is Patient Pain Free? 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 Patient refusing all vascular testing. Improving. Cont clau, adaptic, dry dressing 3x/week. Keep dry in shower, wash separately with dsg changes. Add aquacel extra and ABD to absorb any drainage. Discussed importance of leg elevation, avoiding idle sitting or standing, increased activity, and taking anti-inflammatories for pain. Pt is not overweight. Venous insufficiency is likely hereditary. Increase to size D spandagrip. Pt will need referral to vascular specialist and/or compression stockings of at least 20-30 mmHg after ulcer heals. Pt currently refusing vascular testing. Monitor for redness, pus, malodor, warmth, pain, inc swelling as well as for N/V/F/C/calf pain/chest pain/SOB and go to the ED with these.
== END 2017-12-09 23:59 ==
LOC: WC 15:30
PROVIDERS: Family Provider Family Medicine; PCP Family Medicine; Visit Provider Podiatrist Foot & Ankle Surgery
DX: I83.012 Varicose veins of right lower extremity with ulcer of calf (principal); L97.212 Non-pressure chronic ulcer of right calf with fat layer exposed; R60.0 Localized edema
CPT/HCPCS: 11042; 99203; G0463

== ENCOUNTER 2017-12-29 15:30 | Outpatient (RCR) | payer SELFPAY ==
[2017-12-08 15:22] VITALS: BP 114/67
[2017-12-10 01:11] VITALS: PULSE 74; RESP 16; TEMP 36.5
[2017-12-15 15:56] VITALS: BP 115/55; PULSE 76; RESP 18; TEMP 36.3
--- NOTE | 2017-12-15 16:29 | PCM.WC.PN ---
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 Has been applying neosporin and dry dressing daily. Thought originally that the area was present due to a bad sunburn, however ulcer is a classic venous leg ulcer. Pt has a family history of varicose veins including brothers and parents. Has never had vascular testing. Did have x-rays, and we will get the results of those from the outside facility. 12/01-Ulcers improved. Tolerated moderate spandagrip size E and clau well. Refuses to get venous duplex for unknown reasons. Denies pus, malodor, warmth, pain. Denies N/V/F/C. 12/08--Ulcers improved. Tolerated spandagrip size D and clau well. Refuses to get venous duplex for unknown reasons. Denies pus, malodor, warmth, pain. Denies N/V/F/C. 12/15--Ulcers improved, superior ulcer healed. Tolerated spandagrip size D and clau well. Refuses to get venous duplex for unknown reasons. Denies pus, malodor, warmth, pain. Denies N/V/F/C. Progress of Wound: Improved, superior ulcer healed. - Physical Exam Vital Signs Temp Pulse Resp BP 97.3 F L 76 18 115/55 L 12/15/17 15:56 12/15/17 15:56 12/15/17 15:56 12/15/17 15:56 General: Alert, Oriented x3, Cooperative, No apparent distress Skin: Ulcer/ Wound - R calf with no erythema, no malodor, no pus, no calor, no TTP. No clinical signs of acute bacterial infection noted. See wound/edema assessment below. Wound Measurements and Assessment - Nurse 1 - General Ulcer Measurement Start: 12/15/17 15:56 Freq: Status: Active Protocol: Activity Type Activity Date Activity User E-Sign Co-Sign Detail Recorded Client Recorded Date Recorded By Document 12/15/17 15:56 DL [id number] 12/15/17 16:03 DL 12/15/17 15:56 Wound Center Nurse 1 [Ulcer Assessment Protocol: WC.WD.LOC] #2 Right Bell-Inferior -Current Size (cm) - Length 1 -Current Size (cm) - Width 0.6 -Current Size (cm) - Depth 0.1 -Total Square Cm 0.6 -Photo Taken No -Exudate Amt Small (1-33%) -Exudate Type Sanguineous -Wound Margin Distinct, Outline Attached -Granulation Amt Large (67-100%) -Granulation Quality Red -Necrosis Amt Small (1-33%) -Necrotic Tissue Type Adherent Slough -Structure Exposed N/A -Texture (Reyna-wound Skin Appearance) Scarring -Moisture (Reyna-wound Skin Appearance No Abnormality ) -Color (Reyna-wound Skin Appearance) Hemosiderin Staining Rubor -Temperature (Reyna-wound Skin No Abnormality Appearance) (Pt Warm) -Tenderness on Palpation (Reyna-wound No Skin Appearance) -Ulcer Cleansing Rinsed/ Irrigated with Saline -Foul Odor after Cleansing No -Anesthetic Used 4% Lidocaine Solution #1 Right Bell- Superior -Current Size (cm) - Length 0.6 -Current Size (cm) - Width 0.2 -Current Size (cm) - Depth 0.1 -Total Square Cm 0.12 -Photo Taken No -Exudate Amt None Present (0 %) -Wound Margin Flat & Intact -Granulation Amt None Present (0 %) -Necrosis Amt Large (67-100%) -Necrotic Tissue Type Adherent Slough -Structure Exposed N/A -Texture (Reyna-wound Skin Appearance) Scarring -Moisture (Reyna-wound Skin Appearance No Abnormality ) -Color (Reyna-wound Skin Appearance) Hemosiderin Staining -Temperature (Reyna-wound Skin No Abnormality Appearance) (Pt Warm) -Ulcer Cleansing Wound Cleanser -Foul Odor after Cleansing No -Anesthetic Used 4% Lidocaine Solution [Edema Assessment] -Right Calf (cm) 30.5 -Right Ankle (cm) 19 - Nurse 2 - General Ulcer CM Notes Start: 12/15/17 15:56 Freq: Status: Active Protocol: Activity Type Activity Date Activity User E-Sign Co-Sign Detail Recorded Client Recorded Date Recorded By Document 12/15/17 16:20 MW [id number] 12/15/17 16:22 MW 12/15/17 16:20 Wound Center Nurse 2 [Procedure/Treatment] #2 Right Bell-Inferior -Time 16:21 -Correct Patient Yes -Correct Side, Site, Position Yes -Correct Procedure Yes -Procedure Performed Yes -Type of Procedure Debridement -Clinical Debridement Subcutaneous -Post Debridement Size (cm) - Length 1.3 -Post Debridement Size (cm) - Width 0.6 -Post Debridement Size (cm) - Depth 0.1 -Total Square Cm 0.78 -Wound/Ulcer Outcome Not Healed -Ulcer Cleansing Rinsed/ Irrigated with Saline -Foul Odor after Cleansing No -Bioengineered Tissue No -Bleeding Controlled with Pressure -Treatment Response Procedure Tolerated Well #1 Right Bell- Superior -Time 16:21 -Correct Patient Yes -Correct Side, Site, Position Yes -Correct Procedure Yes -Procedure Performed No -Post Debridement Size (cm) - Length 0 -Post Debridement Size (cm) - Width 0 -Post Debridement Size (cm) - Depth 0 -Total Square Cm 0 -Wound/Ulcer Outcome Healed- Epithelialized -Ulcer Cleansing Rinsed/ Irrigated with Saline -Foul Odor after Cleansing No -Bioengineered Tissue No -Bleeding Controlled with NA -Treatment Response Procedure Tolerated Well [See Physician Procedure note for Specifics] Pain Scale: 0-10 Numeric [Pain] -Is Patient Pain Free? Yes Debridement Note Post-Debridement Measurements/Treatment - Nurse 2 - General Ulcer CM Notes Start: 12/15/17 15:56 Freq: Status: Active Protocol: Activity Type Activity Date Activity User E-Sign Co-Sign Detail Recorded Client Recorded Date Recorded By Document 12/15/17 16:20 MW [id number] 12/15/17 16:22 MW 12/15/17 16:20 Wound Center Nurse 2 #2 Right Bell-Inferior -Time 16:21 -Correct Patient Yes -Correct Side, Site, Position Yes -Correct Procedure Yes -Procedure Performed Yes -Type of Procedure Debridement -Clinical Debridement Subcutaneous -Post Debridement Size (cm) - Length 1.3 -Post Debridement Size (cm) - Width 0.6 -Post Debridement Size (cm) - Depth 0.1 -Total Square Cm 0.78 -Wound/Ulcer Outcome Not Healed -Ulcer Cleansing Rinsed/ Irrigated with Saline -Foul Odor after Cleansing No -Bioengineered Tissue No -Bleeding Controlled with Pressure -Treatment Response Procedure Tolerated Well #1 Right Bell- Superior -Time 16:21 -Correct Patient Yes -Correct Side, Site, Position Yes -Correct Procedure Yes -Procedure Performed No -Post Debridement Size (cm) - Length 0 -Post Debridement Size (cm) - Width 0 -Post Debridement Size (cm) - Depth 0 -Total Square Cm 0 -Wound/Ulcer Outcome Healed- Epithelialized -Ulcer Cleansing Rinsed/ Irrigated with Saline -Foul Odor after Cleansing No -Bioengineered Tissue No -Bleeding Controlled with NA -Treatment Response Procedure Tolerated Well Pain Scale: 0-10 Numeric Is Patient Pain Free? 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 Patient refusing all vascular testing. Improving. Cont clau, adaptic, dry dressing 3x/week. Keep dry in shower, wash separately with dsg changes. Stop aquacel extra, drainage improved. Cont ABD. Discussed importance of leg elevation, avoiding idle sitting or standing, increased activity, and taking anti-inflammatories for pain. Pt is not overweight. Venous insufficiency is likely hereditary. Increase to size D spandagrip. Pt will need referral to vascular specialist and/or compression stockings of at least 20-30 mmHg after ulcer heals. Pt currently refusing vascular testing. Monitor for redness, pus, malodor, warmth, pain, inc swelling as well as for N/V/F/C/calf pain/chest pain/SOB and go to the ED with these.
[2017-12-22 15:32] VITALS: BP 103/55; PULSE 74; RESP 16; TEMP 37.7
--- NOTE | 2017-12-22 16:08 | PCM.WC.PN ---
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 Has been applying neosporin and dry dressing daily. Thought originally that the area was present due to a bad sunburn, however ulcer is a classic venous leg ulcer. Pt has a family history of varicose veins including brothers and parents. Has never had vascular testing. Did have x-rays, and we will get the results of those from the outside facility. 12/01-Ulcers improved. Tolerated moderate spandagrip size E and clau well. Refuses to get venous duplex for unknown reasons. Denies pus, malodor, warmth, pain. Denies N/V/F/C. 12/08--Ulcers improved. Tolerated spandagrip size D and clau well. Refuses to get venous duplex for unknown reasons. Denies pus, malodor, warmth, pain. Denies N/V/F/C. 12/15--Ulcers improved, superior ulcer healed. Tolerated spandagrip size D and clau well. Refuses to get venous duplex for unknown reasons. Denies pus, malodor, warmth, pain. Denies N/V/F/C. 12/22--Ulcer improved, superior ulcer healed. Tolerated spandagrip size D and clau well. Refuses to get venous duplex for unknown reasons. Denies pus, malodor, warmth, pain. Denies N/V/F/C. Progress of Wound: Improved, superior ulcer remains healed. - Physical Exam Vital Signs Temp Pulse Resp BP 99.8 F H 74 16 103/55 L 12/22/17 15:32 12/22/17 15:32 12/22/17 15:32 12/22/17 15:32 General: Alert, Oriented x3, Cooperative, No apparent distress Skin: Ulcer/ Wound - R medial calf with no surrounding erythema, no malodor, no purulent drainage, no calor, no TTP of ulcer or indu-ulcer area. No clinical signs of acute bacterial infection noted. See nurse's wound assessment. Wound Measurements and Assessment - Nurse 1 - General Ulcer Measurement Start: 12/15/17 15:56 Freq: Status: Active Protocol: Activity Type Activity Date Activity User E-Sign Co-Sign Detail Recorded Client Recorded Date Recorded By Document 12/22/17 15:32 [id number] 12/22/17 15:44 LENORA 12/22/17 15:32 Wound Center Nurse 1 [Ulcer Assessment Protocol: WC.WD.LOC] #2 Right Bell-Inferior -Combined with other wound No -Current Size (cm) - Length 0.7 -Current Size (cm) - Width 0.4 -Current Size (cm) - Depth 0.1 -Total Square Cm 0.28 -Date of Last Picture (Recall this 12/22/17 field) -Photo Taken Yes -Epithelialization Small 1-33% -Tunneling No -Undermining/Tunneling No -Circular Undermining No -Classification - Thickness Full Thickness without Exposed Support Structure -Change in Wound Grade/Stage No Query Text:If change please identify the Stage/Grade in the comment (ie. S2 G3) -Exudate Amt Small (1-33%) -Exudate Type Serosanguineous -Wound Margin Distinct, Outline Attached -Granulation Amt Medium (34-66%) -Granulation Quality Red -Slough/Fibrin Yes -Necrosis Amt None Present (0 %) -Necrotic Tissue Type Adherent Slough -Structure Exposed N/A -Texture (Indu-wound Skin Appearance) No Abnormality -Moisture (Indu-wound Skin Appearance No Abnormality ) -Color (Indu-wound Skin Appearance) No Abnormality -Temperature (Indu-wound Skin No Abnormality Appearance) (Pt Warm) -Tenderness on Palpation (Indu-wound No Skin Appearance) -Ulcer Cleansing Rinsed/ Irrigated with Saline -Foul Odor after Cleansing No -Anesthetic Used 4% Lidocaine Solution - Nurse 2 - General Ulcer CM Notes Start: 12/15/17 15:56 Freq: Status: Active Protocol: Activity Type Activity Date Activity User E-Sign Co-Sign Detail Recorded Client Recorded Date Recorded By Document 12/22/17 16:03 MW [id number] 12/22/17 16:04 MW 12/22/17 16:03 Wound Center Nurse 2 [Procedure/Treatment] -Time 16:03 -Correct Patient Yes -Correct Side, Site, Position Yes -Correct Procedure Yes -Procedure Performed Yes -Type of Procedure Debridement -Clinical Debridement Subcutaneous -Post Debridement Size (cm) - Length 0.7 -Post Debridement Size (cm) - Width 0.5 -Post Debridement Size (cm) - Depth 0.1 -Total Square Cm 0.35 -Wound/Ulcer Outcome Not Healed -Ulcer Cleansing Rinsed/ Irrigated with Saline -Foul Odor after Cleansing No -Bioengineered Tissue No -Bleeding Controlled with Pressure -Treatment Response Procedure Tolerated Well [See Physician Procedure note for Specifics] Pain Scale: 0-10 Numeric [Pain] -Is Patient Pain Free? Yes Debridement Note Post-Debridement Measurements/Treatment WC - Nurse 2 - General Ulcer CM Notes Start: 12/15/17 15:56 Freq: Status: Active Protocol: Activity Type Activity Date Activity User E-Sign Co-Sign Detail Recorded Client Recorded Date Recorded By Document 12/15/17 16:20 MW [id number] 12/15/17 16:22 MW Document 12/22/17 16:03 MW [id number] 12/22/17 16:04 MW 12/15/17 12/22/17 16:20 16:03 Wound Center Nurse 2 #2 Right Bell-Inferior -Time 16:21 16:03 -Correct Patient Yes Yes -Correct Side, Site, Position Yes Yes -Correct Procedure Yes Yes -Procedure Performed Yes Yes -Type of Procedure Debridement Debridement -Clinical Debridement Subcutaneous Subcutaneous -Post Debridement Size (cm) - Length 1.3 0.7 -Post Debridement Size (cm) - Width 0.6 0.5 -Post Debridement Size (cm) - Depth 0.1 0.1 -Total Square Cm 0.78 0.35 -Wound/Ulcer Outcome Not Healed Not Healed -Ulcer Cleansing Rinsed/ Rinsed/ Irrigated with Irrigated with Saline Saline -Foul Odor after Cleansing No No -Bioengineered Tissue No No -Bleeding Controlled with Pressure Pressure -Treatment Response Procedure Procedure Tolerated Well Tolerated Well #1 Right Bell- Superior -Time 16:21 -Correct Patient Yes -Correct Side, Site, Position Yes -Correct Procedure Yes -Procedure Performed No -Post Debridement Size (cm) - Length 0 -Post Debridement Size (cm) - Width 0 -Post Debridement Size (cm) - Depth 0 -Total Square Cm 0 -Wound/Ulcer Outcome Healed- Epithelialized -Ulcer Cleansing Rinsed/ Irrigated with Saline -Foul Odor after Cleansing No -Bioengineered Tissue No -Bleeding Controlled with NA -Treatment Response Procedure Tolerated Well Pain Scale: 0-10 Numeric Is Patient Pain Free? Yes Yes Wound debrided: R medial calf Laterality: Right Wound Grade/Stage: Full thickness VLU Type of Debridement: Excisional debridement Anesthesia Used: 4% Lidocaine Solution Depth: Down to and including healthy tissue, in the subcutaneous layer Percentage of wound debrided: 100 Instrument Used: 3mm curette Tissue Removed: fibrous slough Severity: Fat Layer Exposed Amount of bleeding with debridement: Mild Bleeding Controlled with: Pressure, Compression and gauze Patient tolerated procedure well Assessment/Plan Active Problems Non-pressure chronic ulcer of right calf with fat layer exposed (Acute) Localized edema (Chronic) 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 Patient refusing all vascular testing, but ulcer is improving and is actually half the size it was last week. Cont clau, adaptic, dry dressing 3x/week. Keep dry in shower, wash separately with dsg changes. Cont ABD. Discussed importance of leg elevation, avoiding idle sitting or standing, increased activity, and taking anti-inflammatories for pain. Pt is not overweight. Venous insufficiency is likely hereditary. Cont size D spandagrip. Pt will need referral to vascular specialist and/or compression stockings of at least 20-30 mmHg after ulcer heals. Pt currently refusing vascular testing for unknown reason. Monitor for redness, pus, malodor, warmth, pain, inc swelling as well as for N/V/F/C/calf pain/chest pain/SOB and go to the ED with these.
[2017-12-29 15:35] VITALS: BP 107/66; PULSE 70; RESP 16; TEMP 36.4
--- NOTE | 2017-12-29 16:16 | PCM.WC.PN ---
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 Has been applying neosporin and dry dressing daily. Thought originally that the area was present due to a bad sunburn, however ulcer is a classic venous leg ulcer. Pt has a family history of varicose veins including brothers and parents. Has never had vascular testing. Did have x-rays, and we will get the results of those from the outside facility. 12/01-Ulcers improved. Tolerated moderate spandagrip size E and clau well. Refuses to get venous duplex for unknown reasons. Denies pus, malodor, warmth, pain. Denies N/V/F/C. 12/08--Ulcers improved. Tolerated spandagrip size D and clau well. Refuses to get venous duplex for unknown reasons. Denies pus, malodor, warmth, pain. Denies N/V/F/C. 12/15--Ulcers improved, superior ulcer healed. Tolerated spandagrip size D and clau well. Refuses to get venous duplex for unknown reasons. Denies pus, malodor, warmth, pain. Denies N/V/F/C. 12/22--Ulcer improved, superior ulcer healed. Tolerated spandagrip size D and clau well. Refuses to get venous duplex for unknown reasons. Denies pus, malodor, warmth, pain. Denies N/V/F/C. 12/29--Ulcer appears to have healed. No drainage. Using clau every other day. Used spandagrip without trouble. Progress of Wound: Healed. - Physical Exam Vital Signs Temp Pulse Resp BP 97.5 F L 70 16 107/66 12/29/17 15:35 12/29/17 15:35 12/29/17 15:35 12/29/17 15:35 General: Alert, Oriented x3, Cooperative, No apparent distress Skin: No breakdown, Ulcer/ Wound - Previous ulcer R calf covered with epithelial tissue and has healed. Wound Measurements and Assessment WC - Nurse 1 - General Ulcer Measurement Start: 12/15/17 15:56 Freq: Status: Active Protocol: Activity Type Activity Date Activity User E-Sign Co-Sign Detail Recorded Client Recorded Date Recorded By Document 12/29/17 15:35 DL [id number] 12/29/17 15:42 DL 12/29/17 15:35 Wound Center Nurse 1 [Ulcer Assessment] #2 Right Bell-Inferior -Combined with other wound No -Current Size (cm) - Length 1 -Current Size (cm) - Width 0.8 -Current Size (cm) - Depth 0.1 -Total Square Cm 0.8 -Photo Taken No -Epithelialization None Present -Exudate Amt Small (1-33%) -Exudate Type Serosanguineous -Wound Margin Distinct, Outline Attached -Granulation Amt Medium (34-66%) -Granulation Quality [place] -Necrosis Amt Medium (34-66%) -Necrotic Tissue Type Adherent Slough -Structure Exposed N/A -Texture (Reyna-wound Skin Appearance) Scarring -Moisture (Reyna-wound Skin Appearance No Abnormality ) -Color (Reyna-wound Skin Appearance) Hemosiderin Staining -Temperature (Reyna-wound Skin No Abnormality Appearance) (Pt Warm) -Tenderness on Palpation (Reyna-wound No Skin Appearance) -Ulcer Cleansing Rinsed/ Irrigated with Saline -Foul Odor after Cleansing No -Anesthetic Used 4% Lidocaine Solution [Edema Assessment] -Right Calf (cm) 32.2 -Right Ankle (cm) 19.9 WC - Nurse 2 - General Ulcer CM Notes Start: 12/15/17 15:56 Freq: Status: Active Protocol: Activity Type Activity Date Activity User E-Sign Co-Sign Detail Recorded Client Recorded Date Recorded By Document 12/29/17 15:58 MW [id number] 12/29/17 16:02 MW 12/29/17 15:58 Wound Center Nurse 2 [Procedure/Treatment] #2 Right Bell-Inferior -Time 15:59 -Correct Patient Yes -Correct Side, Site, Position Yes -Correct Procedure Yes -Procedure Performed No -Post Debridement Size (cm) - Length 0 -Post Debridement Size (cm) - Width 0 -Post Debridement Size (cm) - Depth 0 -Total Square Cm 0 -Wound/Ulcer Outcome Healed- Epithelialized -Ulcer Cleansing Rinsed/ Irrigated with Saline -Foul Odor after Cleansing No -Bioengineered Tissue No -Bleeding Controlled with NA -Treatment Response Procedure Tolerated Well [See Physician Procedure note for Specifics] Pain Scale: 0-10 Numeric [Pain] -Is Patient Pain Free? Yes Debridement Note Post-Debridement Measurements/Treatment WC - Nurse 2 - General Ulcer CM Notes Start: 12/15/17 15:56 Freq: Status: Active Protocol: Activity Type Activity Date Activity User E-Sign Co-Sign Detail Recorded Client Recorded Date Recorded By Document 12/15/17 16:20 MW [id number] 12/15/17 16:22 MW Document 12/22/17 16:03 MW [id number] 12/22/17 16:04 MW Document 12/29/17 15:58 MW [id number] 12/29/17 16:02 MW 12/15/17 12/22/17 12/29/17 16:20 16:03 15:58 Wound Center Nurse 2 #2 Right Bell-Inferior -Time 16:21 16:03 15:59 -Correct Patient Yes Yes Yes -Correct Side, Site, Position Yes Yes Yes -Correct Procedure Yes Yes Yes -Procedure Performed Yes Yes No -Type of Procedure Debridement Debridement -Clinical Debridement Subcutaneous Subcutaneous -Post Debridement Size (cm) - Length 1.3 0.7 0 -Post Debridement Size (cm) - Width 0.6 0.5 0 -Post Debridement Size (cm) - Depth 0.1 0.1 0 -Total Square Cm 0.78 0.35 0 -Wound/Ulcer Outcome Not Healed Not Healed Healed- Epithelialized -Ulcer Cleansing Rinsed/ Rinsed/ Rinsed/ Irrigated with Irrigated with Irrigated with Saline Saline Saline -Foul Odor after Cleansing No No No -Bioengineered Tissue No No No -Bleeding Controlled with Pressure Pressure NA -Treatment Response Procedure Procedure Procedure Tolerated Well Tolerated Well Tolerated Well #1 Right Bell- Superior -Time 16:21 -Correct Patient Yes -Correct Side, Site, Position Yes -Correct Procedure Yes -Procedure Performed No -Post Debridement Size (cm) - Length 0 -Post Debridement Size (cm) - Width 0 -Post Debridement Size (cm) - Depth 0 -Total Square Cm 0 -Wound/Ulcer Outcome Healed- Epithelialized -Ulcer Cleansing Rinsed/ Irrigated with Saline -Foul Odor after Cleansing No -Bioengineered Tissue No -Bleeding Controlled with NA -Treatment Response Procedure Tolerated Well Pain Scale: 0-10 Numeric Is Patient Pain Free? Yes Yes Yes No debridement was completed today - healed Assessment/Plan Active Problems Localized edema (Chronic) Assessment: see diagnoses Plan: Exam. A total of 25 minutes was spent [id number] with the patient, and over half of that time was spent on counseling, coordination of care, and discussing his diagnoses. Patient refusing all vascular testing, but ulcer has been improving and is actually healed today. Covered with epithelial tissue. Discussed importance of leg elevation, avoiding idle sitting or standing, increased activity, and taking anti-inflammatories for pain. Pt is not overweight. Venous insufficiency is likely hereditary. Pt will need referral to vascular specialist and/or compression stockings of at least 20-30 mmHg. Pt currently refusing vascular testing for unknown reason, also will not see vascular surgeon. Rx 20-30 mmHg stockings, apply to RLE in AM, remove before sleep. Change stockings every 3 months. Advised pt that healed ulcers are fragile, and he is prone to re-ulceration, so he needs to protect the area well. Apply protective ointment such as vaseline BID indefinitely. Monitor for redness, pus, malodor, warmth, pain, inc swelling as well as for N/V/F/C/calf pain/chest pain/SOB and go to the ED with these.
--- NOTE | 2017-12-29 16:20 | PN.PCM_ITS ---
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 Has been applying neosporin and dry dressing daily. Thought originally that the area was present due to a bad sunburn, however ulcer is a classic venous leg ulcer. Pt has a family history of varicose veins including brothers and parents. Has never had vascular testing. Did have x-rays, and we will get the results of those from the outside facility. 12/01-Ulcers improved. Tolerated moderate spandagrip size E and clau well. Refuses to get venous duplex for unknown reasons. Denies pus, malodor, warmth, pain. Denies N/V/F/C. 12/08--Ulcers improved. Tolerated spandagrip size D and clau well. Refuses to get venous duplex for unknown reasons. Denies pus, malodor, warmth, pain. Denies N/V/F/ C. 12/15--Ulcers improved, superior ulcer healed. Tolerated spandagrip size D and clau well. Refuses to get venous duplex for unknown reasons. Denies pus , malodor, warmth, pain. Denies N/V/F/C. 12/22--Ulcer improved, superior ulcer healed. Tolerated spandagrip size D and clau well. Refuses to get venous duplex for unknown reasons. Denies pus, malodor, warmth, pain. Denies N/V/F/ C. 12/29--Ulcer appears to have healed. No drainage. Using clau every other day. Used spandagrip without trouble. Progress of Wound: Healed. - Physical Exam Vital Signs Temp Pulse Resp BP 97.5 F L 70 16 107/66 12/29/17 15:35 12/29/17 15:35 12/29/17 15:35 12/29/17 15:35 General: Alert, Oriented x3, Cooperative, No apparent distress Skin: No breakdown, Ulcer/ Wound - Previous ulcer R calf covered with epithelial tissue and has healed. Wound Measurements and Assessment WC - Nurse 1 - General Ulcer Measurement Start: 12/15/17 15:56 Freq: Status: Active Protocol: Activity Type Activity Date Activity User E-Sign Co-Sign Detail Recorded Client Recorded Date Recorded By Document 12/29/17 15:35 DL [id number] 12/29/17 15:42 DL 12/29/17 15:35 Wound Center Nurse 1 [Ulcer Assessment] #2 Right Bell-Inferior -Combined with other wound No -Current Size (cm) - Length 1 -Current Size (cm) - Width 0.8 -Current Size (cm) - Depth 0.1 -Total Square Cm 0.8 -Photo Taken No -Epithelialization None Present -Exudate Amt Small (1-33%) -Exudate Type Serosanguineous -Wound Margin Distinct, Outline Attached -Granulation Amt Medium (34-66%) -Granulation Quality [place] -Necrosis Amt Medium (34-66%) -Necrotic Tissue Type Adherent Slough -Structure Exposed N/A -Texture (Reyna-wound Skin Appearance) Scarring -Moisture (Reyna-wound Skin Appearance No Abnormality ) -Color (Reyna-wound Skin Appearance) Hemosiderin Staining -Temperature (Reyna-wound Skin No Abnormality Appearance) (Pt Warm) -Tenderness on Palpation (Reyna-wound No Skin Appearance) -Ulcer Cleansing Rinsed/ Irrigated with Saline -Foul Odor after Cleansing No -Anesthetic Used 4% Lidocaine Solution [Edema Assessment] -Right Calf (cm) 32.2 -Right Ankle (cm) 19.9 WC - Nurse 2 - General Ulcer CM Notes Start: 12/15/17 15:56 Freq: Status: Active Protocol: Activity Type Activity Date Activity User E-Sign Co-Sign Detail Recorded Client Recorded Date Recorded By Document 12/29/17 15:58 MW [id number] 12/29/17 16:02 MW 12/29/17 15:58 Wound Center Nurse 2 [Procedure/Treatment] #2 Right Bell-Inferior -Time 15:59 -Correct Patient Yes -Correct Side, Site, Position Yes -Correct Procedure Yes -Procedure Performed No -Post Debridement Size (cm) - Length 0 -Post Debridement Size (cm) - Width 0 -Post Debridement Size (cm) - Depth 0 -Total Square Cm 0 -Wound/Ulcer Outcome Healed- Epithelialized -Ulcer Cleansing Rinsed/ Irrigated with Saline -Foul Odor after Cleansing No -Bioengineered Tissue No -Bleeding Controlled with NA -Treatment Response Procedure Tolerated Well [See Physician Procedure note for Specifics] Pain Scale: 0-10 Numeric [Pain] -Is Patient Pain Free? Yes Debridement Note Post-Debridement Measurements/Treatment WC - Nurse 2 - General Ulcer CM Notes Start: 12/15/17 15:56 Freq: Status: Active Protocol: Activity Type Activity Date Activity User E-Sign Co-Sign Detail Recorded Client Recorded Date Recorded By Document 12/15/17 16:20 MW [id number] 12/15/17 16:22 MW Document 12/22/17 16:03 MW [id number] 12/22/17 16:04 MW Document 12/29/17 15:58 MW [id number] 12/29/17 16:02 MW 12/15/17 12/22/17 12/29/17 16:20 16:03 15:58 Wound Center Nurse 2 #2 Right Bell-Inferior -Time 16:21 16:03 15:59 -Correct Patient Yes Yes Yes -Correct Side, Site, Position Yes Yes Yes -Correct Procedure Yes Yes Yes -Procedure Performed Yes Yes No -Type of Procedure Debridement Debridement -Clinical Debridement Subcutaneous Subcutaneous -Post Debridement Size (cm) - Length 1.3 0.7 0 -Post Debridement Size (cm) - Width 0.6 0.5 0 -Post Debridement Size (cm) - Depth 0.1 0.1 0 -Total Square Cm 0.78 0.35 0 -Wound/Ulcer Outcome Not Healed Not Healed Healed- Epithelialized -Ulcer Cleansing Rinsed/ Rinsed/ Rinsed/ Irrigated with Irrigated with Irrigated with Saline Saline Saline -Foul Odor after Cleansing No No No -Bioengineered Tissue No No No -Bleeding Controlled with Pressure Pressure NA -Treatment Response Procedure Procedure Procedure Tolerated Well Tolerated Well Tolerated Well #1 Right Bell- Superior -Time 16:21 -Correct Patient Yes -Correct Side, Site, Position Yes -Correct Procedure Yes -Procedure Performed No -Post Debridement Size (cm) - Length 0 -Post Debridement Size (cm) - Width 0 -Post Debridement Size (cm) - Depth 0 -Total Square Cm 0 -Wound/Ulcer Outcome Healed- Epithelialized -Ulcer Cleansing Rinsed/ Irrigated with Saline -Foul Odor after Cleansing No -Bioengineered Tissue No -Bleeding Controlled with NA -Treatment Response Procedure Tolerated Well Pain Scale: 0-10 Numeric Is Patient Pain Free? Yes Yes Yes No debridement was completed today - healed Assessment/Plan Active Problems Localized edema (Chronic) Assessment: see diagnoses Plan: Exam. A total of 25 minutes was spent [id number] with the patient, and over half of that time was spent on counseling, coordination of care, and discussing his diagnoses. Patient refusing all vascular testing, but ulcer has been improving and is actually healed today. Covered with epithelial tissue. Discussed importance of leg elevation, avoiding idle sitting or standing, increased activity, and taking anti-inflammatories for pain. Pt is not overweight. Venous insufficiency is likely hereditary. Pt will need referral to vascular specialist and/or compression stockings of at least 20-30 mmHg. Pt currently refusing vascular testing for unknown reason, also will not see vascular surgeon. Rx 20-30 mmHg stockings, apply to RLE in AM, remove before sleep. Change stockings every 3 months. Advised pt that healed ulcers are fragile, and he is prone to re-ulceration, so he needs to protect the area well. Apply protective ointment such as vaseline BID indefinitely. Monitor for redness, pus, malodor, warmth, pain, inc swelling as well as for N/V/F/C/ calf pain/chest pain/SOB and go to the ED with these.
== END 2018-01-06 23:59 ==
LOC: WC 15:30
PROVIDERS: Family Provider Family Medicine; PCP Family Medicine; Visit Provider Podiatrist Foot & Ankle Surgery
DX: I83.012 Varicose veins of right lower extremity with ulcer of calf (principal); L97.212 Non-pressure chronic ulcer of right calf with fat layer exposed; R60.0 Localized edema
CPT/HCPCS: 11042; 99212; G0463

== ENCOUNTER 2018-03-02 16:00 | Outpatient (RCR) | payer SELFPAY ==
[2018-02-09 15:12] VITALS: BP 123/56; PULSE 84; RESP 16; TEMP 36.4
--- NOTE | 2018-02-09 16:12 | PN.PCM_ITS ---
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 Has been applying neosporin and dry dressing daily. Thought originally that the area was present due to a bad sunburn, however ulcer is a classic venous leg ulcer. Pt has a family history of varicose veins including brothers and parents. Has never had vascular testing. Did have x-rays, and we will get the results of those from the outside facility. 12/01-Ulcers improved. Tolerated moderate spandagrip size E and clau well. Refuses to get venous duplex for unknown reasons. Denies pus, malodor, warmth, pain. Denies N/V/F/C. 12/08--Ulcers improved. Tolerated spandagrip size D and clau well. Refuses to get venous duplex for unknown reasons. Denies pus, malodor, warmth, pain. Denies N/V/F/ C. 12/15--Ulcers improved, superior ulcer healed. Tolerated spandagrip size D and clau well. Refuses to get venous duplex for unknown reasons. Denies pus , malodor, warmth, pain. Denies N/V/F/C. 12/22--Ulcer improved, superior ulcer healed. Tolerated spandagrip size D and clau well. Refuses to get venous duplex for unknown reasons. Denies pus, malodor, warmth, pain. Denies N/V/F/ C. 12/29--Ulcer appears to have healed. No drainage. Using clau every other day. Used spandagrip without trouble. 02/09--Ulcer has recurred. Pt states it has been present for about 1-2 weeks. Has been applying vaseline. States he is now willing to have the venous testing done and will go to a vascular specialist. Progress of Wound: recurred. - Physical Exam Vital Signs Temp Pulse Resp BP 97.5 F L 84 16 123/56 H 02/09/18 15:12 02/09/18 15:12 02/09/18 15:12 02/09/18 15:12 General: Alert, Oriented x3, Cooperative, No apparent distress Skin: Ulcer/ Wound - R medial calf with no erythema, no pus, no malodor, no warmth, minimal pain. No clinical signs of acute bacterial infection noted. See wound/edema assessment below. Wound Measurements and Assessment WC - Nurse 1 - General Ulcer Measurement Start: 02/09/18 15:01 Freq: Status: Active Protocol: Activity Type Activity Date Activity User E-Sign Co-Sign Detail Recorded Client Recorded Date Recorded By Document 02/09/18 15:12 [facility] [id number] 02/09/18 15:19 [facility] 02/09/18 15:12 Wound Center Nurse 1 [Ulcer Assessment] #4- RT SHIELDS INFERIOR -Combined with other wound No -Current Size (cm) - Length 3 -Current Size (cm) - Width 2.8 -Current Size (cm) - Depth 0.1 -Total Square Cm 8.4 -Date of Last Picture (Recall this 02/09/18 field) -Photo Taken Yes -Epithelialization None Present -Tunneling No -Undermining/Tunneling No -Circular Undermining No -Exudate Amt Small (1-33%) -Exudate Type Serosanguineous -Wound Margin Distinct, Outline Attached -Granulation Amt Small (1-33%) -Granulation Quality Red -Slough/Fibrin Yes -Necrosis Amt Medium (34-66%) -Necrotic Tissue Type Adherent Slough -Structure Exposed N/A -Texture (Reyna-wound Skin Appearance) Scarring -Moisture (Reyna-wound Skin Appearance Assessed ) -Color (Reyna-wound Skin Appearance) Hemosiderin Staining -Temperature (Reyna-wound Skin No Abnormality Appearance) (Pt Warm) -Tenderness on Palpation (Reyna-wound Yes Skin Appearance) -Ulcer Cleansing Rinsed/ Irrigated with Saline -Foul Odor after Cleansing No -Anesthetic Used 4% Lidocaine Solution #3- RT SHIELDS SUPERIOR -Combined with other wound No -Current Size (cm) - Length 0.6 -Current Size (cm) - Width 0.3 -Current Size (cm) - Depth 0.1 -Total Square Cm 0.18 -Date of Last Picture (Recall this 02/09/18 field) -Photo Taken Yes -Epithelialization None Present -Tunneling No -Undermining/Tunneling No -Circular Undermining No -Exudate Amt Small (1-33%) -Exudate Type Serosanguineous -Wound Margin Distinct, Outline Attached -Granulation Amt Small (1-33%) -Granulation Quality Red -Slough/Fibrin Yes -Necrosis Amt Medium (34-66%) -Necrotic Tissue Type Adherent Slough -Structure Exposed None/Limited to Skin Breakdown -Texture (Reyna-wound Skin Appearance) Scarring -Moisture (Reyna-wound Skin Appearance Assessed ) -Color (Reyna-wound Skin Appearance) Hemosiderin Staining -Temperature (Reyna-wound Skin No Abnormality Appearance) (Pt Warm) -Tenderness on Palpation (Reyna-wound Yes Skin Appearance) -Ulcer Cleansing Rinsed/ Irrigated with Saline -Foul Odor after Cleansing No -Anesthetic Used 4% Lidocaine Solution [Edema Assessment] -Lower Limb Edema Present No -Right Calf (cm) 32 -Right Ankle (cm) 21 -Left Calf (cm) 32 -Left Ankle (cm) 21 WC - Nurse 2 - General Ulcer CM Notes Start: 02/09/18 15:01 Freq: Status: Active Protocol: Activity Type Activity Date Activity User E-Sign Co-Sign Detail Recorded Client Recorded Date Recorded By Document 02/09/18 15:50 MW [id number] 02/09/18 15:54 MW 02/09/18 15:50 Wound Center Nurse 2 [Procedure/Treatment] #4- RT SHIELDS INFERIOR -Time 15:51 -Correct Patient Yes -Correct Side, Site, Position Yes -Correct Procedure Yes -Procedure Performed Yes -Type of Procedure Debridement -Clinical Debridement Subcutaneous -Post Debridement Size (cm) - Length 3.1 -Post Debridement Size (cm) - Width 2.9 -Post Debridement Size (cm) - Depth 0.1 -Total Square Cm 8.99 -Wound/Ulcer Outcome Not Healed -Ulcer Cleansing Rinsed/ Irrigated with Saline -Foul Odor after Cleansing No -Bioengineered Tissue No -Bleeding Controlled with Pressure -Treatment Response Procedure Tolerated Well #3- RT SHIELDS SUPERIOR -Time 15:51 -Correct Patient Yes -Correct Side, Site, Position Yes -Correct Procedure Yes -Procedure Performed Yes -Type of Procedure Debridement -Clinical Debridement Subcutaneous -Post Debridement Size (cm) - Length 0.7 -Post Debridement Size (cm) - Width 0.3 -Post Debridement Size (cm) - Depth 0.1 -Total Square Cm 0.21 -Wound/Ulcer Outcome Not Healed -Ulcer Cleansing Rinsed/ Irrigated with Saline -Foul Odor after Cleansing No -Bioengineered Tissue No -Bleeding Controlled with Pressure -Treatment Response Procedure Tolerated Well [See Physician Procedure note for Specifics] Pain Scale: 0-10 Numeric [Pain] -Is Patient Pain Free? Yes Debridement Note Post-Debridement Measurements/Treatment WC - Nurse 2 - General Ulcer CM Notes Start: 02/09/18 15:01 Freq: Status: Active Protocol: Activity Type Activity Date Activity User E-Sign Co-Sign Detail Recorded Client Recorded Date Recorded By Document 02/09/18 15:50 MW [id number] 02/09/18 15:54 MW 02/09/18 15:50 Wound Center Nurse 2 #4- RT SHIELDS INFERIOR -Time 15:51 -Correct Patient Yes -Correct Side, Site, Position Yes -Correct Procedure Yes -Procedure Performed Yes -Type of Procedure Debridement -Clinical Debridement Subcutaneous -Post Debridement Size (cm) - Length 3.1 -Post Debridement Size (cm) - Width 2.9 -Post Debridement Size (cm) - Depth 0.1 -Total Square Cm 8.99 -Wound/Ulcer Outcome Not Healed -Ulcer Cleansing Rinsed/ Irrigated with Saline -Foul Odor after Cleansing No -Bioengineered Tissue No -Bleeding Controlled with Pressure -Treatment Response Procedure Tolerated Well #3- RT SHIELDS SUPERIOR -Time 15:51 -Correct Patient Yes -Correct Side, Site, Position Yes -Correct Procedure Yes -Procedure Performed Yes -Type of Procedure Debridement -Clinical Debridement Subcutaneous -Post Debridement Size (cm) - Length 0.7 -Post Debridement Size (cm) - Width 0.3 -Post Debridement Size (cm) - Depth 0.1 -Total Square Cm 0.21 -Wound/Ulcer Outcome Not Healed -Ulcer Cleansing Rinsed/ Irrigated with Saline -Foul Odor after Cleansing No -Bioengineered Tissue No -Bleeding Controlled with Pressure -Treatment Response Procedure Tolerated Well Pain Scale: 0-10 Numeric Is Patient Pain Free? Yes Wound debrided: R calf x 2 Laterality: Right Wound Grade/Stage: full thickness VLU Type of Debridement: Excisional debridement Anesthesia Used: 4% Lidocaine Solution Depth: Down to and including healthy tissue, in the subcutaneous layer Percentage of wound debrided: 100 Instrument Used: 3mm curette Tissue Removed: fibrous slough Severity: Fat Layer Exposed Amount of bleeding with debridement: Mild Bleeding Controlled with: Pressure, Compression and gauze Patient tolerated procedure well Assessment/Plan Active Problems Non-pressure chronic ulcer of right calf with fat layer exposed (Acute) Localized edema (Chronic) 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 A total of 15 minutes was spent [id number] with the patient, and over half of that time was spent on counseling, coordination of care, and discussing his diagnoses. SQ/excisional debridement R calf ulcers x 2. Patient now willing to have vascular testing done--ordered venous duplex. Discussed importance of leg elevation, avoiding idle sitting or standing, increased activity, and taking anti-inflammatories for pain. Pt is not overweight. Venous insufficiency is likely hereditary. Referral to vascular specialist after vascular testing done. Monitor for redness, pus, malodor, warmth, pain, inc swelling as well as for N/V/F/C/calf pain/chest pain/SOB and go to the ED with these. Return in 1 week.
[2018-02-16 16:50] VITALS: BP 124/77; PULSE 76; RESP 16; TEMP 36.8
--- NOTE | 2018-02-16 16:54 | WC ---
[place] SCREEN RIGHT ARM SYSTOLIC = 116 LEFT ARM SYSTOLIC = 122 DORSALIS PEDIS = 146 DORSALIS PEDIS = 138 POST. TIB. = 138 POST. TIB. = 136 M[place]ISON = 1.2 [place] = 1.1 ALL PULSES BI-TO MULTIPHASIC. NO EDEMA OR ERYTHEMA. HAIR GROWTH PRESENT FEET WARM TO TOUCH BILATERALLY
--- NOTE | 2018-02-16 17:03 | PCM.WC.PN ---
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 Has been applying neosporin and dry dressing daily. Thought originally that the area was present due to a bad sunburn, however ulcer is a classic venous leg ulcer. Pt has a family history of varicose veins including brothers and parents. Has never had vascular testing. Did have x-rays, and we will get the results of those from the outside facility. 12/01-Ulcers improved. Tolerated moderate spandagrip size E and clau well. Refuses to get venous duplex for unknown reasons. Denies pus, malodor, warmth, pain. Denies N/V/F/C. 12/08--Ulcers improved. Tolerated spandagrip size D and clau well. Refuses to get venous duplex for unknown reasons. Denies pus, malodor, warmth, pain. Denies N/V/F/C. 12/15--Ulcers improved, superior ulcer healed. Tolerated spandagrip size D and clau well. Refuses to get venous duplex for unknown reasons. Denies pus, malodor, warmth, pain. Denies N/V/F/C. 12/22--Ulcer improved, superior ulcer healed. Tolerated spandagrip size D and clau well. Refuses to get venous duplex for unknown reasons. Denies pus, malodor, warmth, pain. Denies N/V/F/C. 12/29--Ulcer appears to have healed. No drainage. Using clau every other day. Used spandagrip without trouble. 02/09--Ulcer has recurred. Pt states it has been present for about 1-2 weeks. Has been applying vaseline. States he is now willing to have the venous testing done and will go to a vascular specialist. 02/16--Has been applying clau with moderate spandagrip 3x/week with improvement. Denies pus,malodor, warmth, pain, redness. Denies N/V/F/C. Venous duplex scheduled for next week. MADISON done in clinic today reveals MADISON >1 bilateral. Progress of Wound: improved. - Physical Exam Vital Signs Temp Pulse Resp BP 98.2 F 76 16 124/77 H 02/16/18 16:50 02/16/18 16:50 02/16/18 16:50 02/16/18 16:50 General: Alert, Oriented x3, Cooperative, No apparent distress Extremities: - - Varicosities R leg Skin: Ulcer/ Wound - R calf with no erythema, no pus, no malodor, no increased warmth. No clinical signs of acute bacterial infection noted. See wound/edema assessment below. Wound Measurements and Assessment WC - Nurse 1 - General Ulcer Measurement Start: 02/09/18 15:01 Freq: Status: Active Protocol: Activity Type Activity Date Activity User E-Sign Co-Sign Detail Recorded Client Recorded Date Recorded By Document 02/16/18 16:50 [id number] 02/16/18 16:54 LENORA 02/16/18 16:50 Wound Center Nurse 1 [Ulcer Assessment] #4- RT SHIELDS INFERIOR -Combined with other wound No -Current Size (cm) - Length 2.5 -Current Size (cm) - Width 2.3 -Current Size (cm) - Depth 0.1 -Total Square Cm 5.75 -Date of Last Picture (Recall this 02/09/18 field) -Photo Taken No -Epithelialization None Present -Tunneling No -Undermining/Tunneling No -Circular Undermining No -Classification - Thickness Full Thickness without Exposed Support Structure -Exudate Amt Small (1-33%) -Exudate Type Serosanguineous -Wound Margin Distinct, Outline Attached -Granulation Amt Medium (34-66%) -Granulation Quality Red -Slough/Fibrin Yes -Necrosis Amt None Present (0 %) -Necrotic Tissue Type Adherent Slough -Structure Exposed N/A -Texture (Reyna-wound Skin Appearance) No Abnormality -Moisture (Reyna-wound Skin Appearance No Abnormality ) -Color (Reyna-wound Skin Appearance) Hemosiderin Staining -Temperature (Reyna-wound Skin No Abnormality Appearance) (Pt Warm) -Ulcer Cleansing Rinsed/ Irrigated with Saline -Foul Odor after Cleansing No -Anesthetic Used 5% Lidocaine Gel #3- RT SHIELDS SUPERIOR -Combined with other wound No -Current Size (cm) - Length 0 -Current Size (cm) - Width 0 -Current Size (cm) - Depth 0 -Total Square Cm 0 -Photo Taken Yes -Epithelialization Large 67-100% -Tunneling No -Undermining/Tunneling No -Circular Undermining No -Exudate Amt None Present (0 %) -Wound Margin Distinct, Outline Attached -Granulation Amt None Present (0 %) -Granulation Quality N/A -Necrosis Amt None Present (0 %) -Necrotic Tissue Type Eschar -Structure Exposed None/Limited to Skin Breakdown -Texture (Reyna-wound Skin Appearance) No Abnormality -Moisture (Reyna-wound Skin Appearance No Abnormality ) -Color (Reyna-wound Skin Appearance) Hemosiderin Staining -Temperature (Reyna-wound Skin No Abnormality Appearance) (Pt Warm) -Ulcer Cleansing Not Cleansed -Foul Odor after Cleansing No [Edema Assessment] -Lower Limb Edema Present No WC - Nurse 2 - General Ulcer CM Notes Start: 02/09/18 15:01 Freq: Status: Active Protocol: Activity Type Activity Date Activity User E-Sign Co-Sign Detail Recorded Client Recorded Date Recorded By Document 02/16/18 16:59 MW [id number] 02/16/18 17:02 MW 02/16/18 16:59 Wound Center Nurse 2 [Procedure/Treatment] #4- RT SHIELSD INFERIOR -Time 16:59 -Correct Patient Yes -Correct Side, Site, Position Yes -Correct Procedure Yes -Procedure Performed Yes -Type of Procedure Debridement -Clinical Debridement Subcutaneous -Post Debridement Size (cm) - Length 2.6 -Post Debridement Size (cm) - Width 2.3 -Post Debridement Size (cm) - Depth 0.1 -Total Square Cm 5.98 -Wound/Ulcer Outcome Not Healed -Ulcer Cleansing Rinsed/ Irrigated with Saline -Foul Odor after Cleansing No -Bioengineered Tissue No -Bleeding Controlled with Pressure -Treatment Response Procedure Tolerated Well #3- RT SHIELDS SUPERIOR -Time 17:00 -Correct Patient Yes -Correct Side, Site, Position Yes -Correct Procedure Yes -Procedure Performed Yes -Type of Procedure Debridement -Clinical Debridement Subcutaneous -Post Debridement Size (cm) - Length 0.3 -Post Debridement Size (cm) - Width 0.2 -Post Debridement Size (cm) - Depth 0.1 -Total Square Cm 0.06 -Wound/Ulcer Outcome Not Healed -Ulcer Cleansing Rinsed/ Irrigated with Saline -Foul Odor after Cleansing No -Bioengineered Tissue No -Bleeding Controlled with Pressure -Treatment Response Procedure Tolerated Well [See Physician Procedure note for Specifics] Pain Scale: 0-10 Numeric [Pain] -Is Patient Pain Free? Yes Debridement Note Post-Debridement Measurements/Treatment WC - Nurse 2 - General Ulcer CM Notes Start: 02/09/18 15:01 Freq: Status: Active Protocol: Activity Type Activity Date Activity User E-Sign Co-Sign Detail Recorded Client Recorded Date Recorded By Document 02/09/18 15:50 MW [id number] 02/09/18 15:54 MW Document 02/16/18 16:59 MW [id number] 02/16/18 17:02 MW 02/09/18 02/16/18 15:50 16:59 Wound Center Nurse 2 #4- RT SHIELDS INFERIOR -Time 15:51 16:59 -Correct Patient Yes Yes -Correct Side, Site, Position Yes Yes -Correct Procedure Yes Yes -Procedure Performed Yes Yes -Type of Procedure Debridement Debridement -Clinical Debridement Subcutaneous Subcutaneous -Post Debridement Size (cm) - Length 3.1 2.6 -Post Debridement Size (cm) - Width 2.9 2.3 -Post Debridement Size (cm) - Depth 0.1 0.1 -Total Square Cm 8.99 5.98 -Wound/Ulcer Outcome Not Healed Not Healed -Ulcer Cleansing Rinsed/ Rinsed/ Irrigated with Irrigated with Saline Saline -Foul Odor after Cleansing No No -Bioengineered Tissue No No -Bleeding Controlled with Pressure Pressure -Treatment Response Procedure Procedure Tolerated Well Tolerated Well #3- RT SHIELDS SUPERIOR -Time 15:51 17:00 -Correct Patient Yes Yes -Correct Side, Site, Position Yes Yes -Correct Procedure Yes Yes -Procedure Performed Yes Yes -Type of Procedure Debridement Debridement -Clinical Debridement Subcutaneous Subcutaneous -Post Debridement Size (cm) - Length 0.7 0.3 -Post Debridement Size (cm) - Width 0.3 0.2 -Post Debridement Size (cm) - Depth 0.1 0.1 -Total Square Cm 0.21 0.06 -Wound/Ulcer Outcome Not Healed Not Healed -Ulcer Cleansing Rinsed/ Rinsed/ Irrigated with Irrigated with Saline Saline -Foul Odor after Cleansing No No -Bioengineered Tissue No No -Bleeding Controlled with Pressure Pressure -Treatment Response Procedure Procedure Tolerated Well Tolerated Well Pain Scale: 0-10 Numeric Is Patient Pain Free? Yes Yes Wound debrided: R calf Laterality: Right Wound Grade/Stage: full thickness VLU Type of Debridement: Excisional debridement Anesthesia Used: 4% Lidocaine Solution Depth: Down to and including healthy tissue, in the subcutaneous layer Percentage of wound debrided: 100 Instrument Used: 5mm curette Tissue Removed: fibrous slough Severity: Fat Layer Exposed Amount of bleeding with debridement: Mild Bleeding Controlled with: Pressure, Compression and gauze Patient tolerated procedure well Assessment/Plan Active Problems Non-pressure chronic ulcer of right calf with fat layer exposed (Acute) Localized edema (Chronic) 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 Venous duplex scheduled for next week. MADISON done today in clinic. Discussed importance of leg elevation, avoiding idle sitting or standing, increased activity, and taking anti-inflammatories for pain. Pt is not overweight. Venous insufficiency is likely hereditary. Referral to vascular specialist after vascular testing done--Dr. Cedillo. Monitor for redness, pus, malodor, warmth, pain, inc swelling as well as for N/V/F/C/calf pain/chest pain/SOB and go to the ED with these. Return in 1 week.
--- NOTE | 2018-02-16 17:06 | PN.PCM_ITS ---
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 Has been applying neosporin and dry dressing daily. Thought originally that the area was present due to a bad sunburn, however ulcer is a classic venous leg ulcer. Pt has a family history of varicose veins including brothers and parents. Has never had vascular testing. Did have x-rays, and we will get the results of those from the outside facility. 12/01-Ulcers improved. Tolerated moderate spandagrip size E and clau well. Refuses to get venous duplex for unknown reasons. Denies pus, malodor, warmth, pain. Denies N/V/F/C. 12/08--Ulcers improved. Tolerated spandagrip size D and clau well. Refuses to get venous duplex for unknown reasons. Denies pus, malodor, warmth, pain. Denies N/V/F/ C. 12/15--Ulcers improved, superior ulcer healed. Tolerated spandagrip size D and clau well. Refuses to get venous duplex for unknown reasons. Denies pus , malodor, warmth, pain. Denies N/V/F/C. 12/22--Ulcer improved, superior ulcer healed. Tolerated spandagrip size D and clau well. Refuses to get venous duplex for unknown reasons. Denies pus, malodor, warmth, pain. Denies N/V/F/ C. 12/29--Ulcer appears to have healed. No drainage. Using clau every other day. Used spandagrip without trouble. 02/09--Ulcer has recurred. Pt states it has been present for about 1-2 weeks. Has been applying vaseline. States he is now willing to have the venous testing done and will go to a vascular specialist. 02/16--Has been applying clau with moderate spandagrip 3x/week with improvement. Denies pus,malodor, warmth, pain, redness. Denies N/V/F/C. Venous duplex scheduled for next week. MADISON done in clinic today reveals MADISON >1 bilateral. Progress of Wound: improved. - Physical Exam Vital Signs Temp Pulse Resp BP 98.2 F 76 16 124/77 H 02/16/18 16:50 02/16/18 16:50 02/16/18 16:50 02/16/18 16:50 General: Alert, Oriented x3, Cooperative, No apparent distress Extremities: - - Varicosities R leg Skin: Ulcer/ Wound - R calf with no erythema, no pus, no malodor, no increased warmth. No clinical signs of acute bacterial infection noted. See wound/edema assessment below. Wound Measurements and Assessment WC - Nurse 1 - General Ulcer Measurement Start: 02/09/18 15:01 Freq: Status: Active Protocol: Activity Type Activity Date Activity User E-Sign Co-Sign Detail Recorded Client Recorded Date Recorded By Document 02/16/18 16:50 [id number] 02/16/18 16:54 LENORA 02/16/18 16:50 Wound Center Nurse 1 [Ulcer Assessment] #4- RT SHIELDS INFERIOR -Combined with other wound No -Current Size (cm) - Length 2.5 -Current Size (cm) - Width 2.3 -Current Size (cm) - Depth 0.1 -Total Square Cm 5.75 -Date of Last Picture (Recall this 02/09/18 field) -Photo Taken No -Epithelialization None Present -Tunneling No -Undermining/Tunneling No -Circular Undermining No -Classification - Thickness Full Thickness without Exposed Support Structure -Exudate Amt Small (1-33%) -Exudate Type Serosanguineous -Wound Margin Distinct, Outline Attached -Granulation Amt Medium (34-66%) -Granulation Quality Red -Slough/Fibrin Yes -Necrosis Amt None Present (0 %) -Necrotic Tissue Type Adherent Slough -Structure Exposed N/A -Texture (Reyna-wound Skin Appearance) No Abnormality -Moisture (Reyna-wound Skin Appearance No Abnormality ) -Color (Reyna-wound Skin Appearance) Hemosiderin Staining -Temperature (Reyna-wound Skin No Abnormality Appearance) (Pt Warm) -Ulcer Cleansing Rinsed/ Irrigated with Saline -Foul Odor after Cleansing No -Anesthetic Used 5% Lidocaine Gel #3- RT SHIELDS SUPERIOR -Combined with other wound No -Current Size (cm) - Length 0 -Current Size (cm) - Width 0 -Current Size (cm) - Depth 0 -Total Square Cm 0 -Photo Taken Yes -Epithelialization Large 67-100% -Tunneling No -Undermining/Tunneling No -Circular Undermining No -Exudate Amt None Present (0 %) -Wound Margin Distinct, Outline Attached -Granulation Amt None Present (0 %) -Granulation Quality N/A -Necrosis Amt None Present (0 %) -Necrotic Tissue Type Eschar -Structure Exposed None/Limited to Skin Breakdown -Texture (Reyna-wound Skin Appearance) No Abnormality -Moisture (Reyna-wound Skin Appearance No Abnormality ) -Color (Reyna-wound Skin Appearance) Hemosiderin Staining -Temperature (Reyna-wound Skin No Abnormality Appearance) (Pt Warm) -Ulcer Cleansing Not Cleansed -Foul Odor after Cleansing No [Edema Assessment] -Lower Limb Edema Present No WC - Nurse 2 - General Ulcer CM Notes Start: 02/09/18 15:01 Freq: Status: Active Protocol: Activity Type Activity Date Activity User E-Sign Co-Sign Detail Recorded Client Recorded Date Recorded By Document 02/16/18 16:59 MW [id number] 02/16/18 17:02 MW 02/16/18 16:59 Wound Center Nurse 2 [Procedure/Treatment] #4- RT SHIELDS INFERIOR -Time 16:59 -Correct Patient Yes -Correct Side, Site, Position Yes -Correct Procedure Yes -Procedure Performed Yes -Type of Procedure Debridement -Clinical Debridement Subcutaneous -Post Debridement Size (cm) - Length 2.6 -Post Debridement Size (cm) - Width 2.3 -Post Debridement Size (cm) - Depth 0.1 -Total Square Cm 5.98 -Wound/Ulcer Outcome Not Healed -Ulcer Cleansing Rinsed/ Irrigated with Saline -Foul Odor after Cleansing No -Bioengineered Tissue No -Bleeding Controlled with Pressure -Treatment Response Procedure Tolerated Well #3- RT SHIELDS SUPERIOR -Time 17:00 -Correct Patient Yes -Correct Side, Site, Position Yes -Correct Procedure Yes -Procedure Performed Yes -Type of Procedure Debridement -Clinical Debridement Subcutaneous -Post Debridement Size (cm) - Length 0.3 -Post Debridement Size (cm) - Width 0.2 -Post Debridement Size (cm) - Depth 0.1 -Total Square Cm 0.06 -Wound/Ulcer Outcome Not Healed -Ulcer Cleansing Rinsed/ Irrigated with Saline -Foul Odor after Cleansing No -Bioengineered Tissue No -Bleeding Controlled with Pressure -Treatment Response Procedure Tolerated Well [See Physician Procedure note for Specifics] Pain Scale: 0-10 Numeric [Pain] -Is Patient Pain Free? Yes Debridement Note Post-Debridement Measurements/Treatment WC - Nurse 2 - General Ulcer CM Notes Start: 02/09/18 15:01 Freq: Status: Active Protocol: Activity Type Activity Date Activity User E-Sign Co-Sign Detail Recorded Client Recorded Date Recorded By Document 02/09/18 15:50 MW [id number] 02/09/18 15:54 MW Document 02/16/18 16:59 MW [id number] 02/16/18 17:02 MW 02/09/18 02/16/18 15:50 16:59 Wound Center Nurse 2 #4- RT SHIELDS INFERIOR -Time 15:51 16:59 -Correct Patient Yes Yes -Correct Side, Site, Position Yes Yes -Correct Procedure Yes Yes -Procedure Performed Yes Yes -Type of Procedure Debridement Debridement -Clinical Debridement Subcutaneous Subcutaneous -Post Debridement Size (cm) - Length 3.1 2.6 -Post Debridement Size (cm) - Width 2.9 2.3 -Post Debridement Size (cm) - Depth 0.1 0.1 -Total Square Cm 8.99 5.98 -Wound/Ulcer Outcome Not Healed Not Healed -Ulcer Cleansing Rinsed/ Rinsed/ Irrigated with Irrigated with Saline Saline -Foul Odor after Cleansing No No -Bioengineered Tissue No No -Bleeding Controlled with Pressure Pressure -Treatment Response Procedure Procedure Tolerated Well Tolerated Well #3- RT SHIELDS SUPERIOR -Time 15:51 17:00 -Correct Patient Yes Yes -Correct Side, Site, Position Yes Yes -Correct Procedure Yes Yes -Procedure Performed Yes Yes -Type of Procedure Debridement Debridement -Clinical Debridement Subcutaneous Subcutaneous -Post Debridement Size (cm) - Length 0.7 0.3 -Post Debridement Size (cm) - Width 0.3 0.2 -Post Debridement Size (cm) - Depth 0.1 0.1 -Total Square Cm 0.21 0.06 -Wound/Ulcer Outcome Not Healed Not Healed -Ulcer Cleansing Rinsed/ Rinsed/ Irrigated with Irrigated with Saline Saline -Foul Odor after Cleansing No No -Bioengineered Tissue No No -Bleeding Controlled with Pressure Pressure -Treatment Response Procedure Procedure Tolerated Well Tolerated Well Pain Scale: 0-10 Numeric Is Patient Pain Free? Yes Yes Wound debrided: R calf Laterality: Right Wound Grade/Stage: full thickness VLU Type of Debridement: Excisional debridement Anesthesia Used: 4% Lidocaine Solution Depth: Down to and including healthy tissue, in the subcutaneous layer Percentage of wound debrided: 100 Instrument Used: 5mm curette Tissue Removed: fibrous slough Severity: Fat Layer Exposed Amount of bleeding with debridement: Mild Bleeding Controlled with: Pressure, Compression and gauze Patient tolerated procedure well Assessment/Plan Active Problems Non-pressure chronic ulcer of right calf with fat layer exposed (Acute) Localized edema (Chronic) 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 Venous duplex scheduled for next week. MADISON done today in clinic. Discussed importance of leg elevation, avoiding idle sitting or standing, increased activity, and taking anti- inflammatories for pain. Pt is not overweight. Venous insufficiency is likely hereditary. Referral to vascular specialist after vascular testing done--Dr. Cedillo. Monitor for redness, pus, malodor, warmth, pain, inc swelling as well as for N/V/F/C/calf pain/chest pain/SOB and go to the ED with these. Return in 1 week.
--- NOTE | 2018-02-23 13:03 | VDLE_ITS ---
Reason For Study: nonhealing ulcer right calf, L 97.212 RIGHT LEFT CFV is compressible, spontaneous, phasic, CFV is compressible, spontaneous, phasic, competent and demonstrates normal competent, and demonstrates normal augmentation. augmentation. FV is compressible, spontaneous, phasic, FV is compressible, spontaneous, phasic, competent and demonstrates normal competent and demonstrates normal augmentation. augmentation. POP V is compressible, spontaneous, phasic, POP V is compressible, spontaneous, phasic, competent and demonstrates normal competent and demonstrates normal augmentation. augmentation. T/P Trunk is compressible. T/P Trunk is compressible. PTV is compressible. PTV is compressible. RT PerV is compressible. LT PerV is compressible. S-F Junction is incompetent for greater S-F Junction is competent. than .5 seconds. GSV is incompetent throughout for greater GSV is incompetent throughout for greater than .5 seconds. GSV measures .284 x .299 than .5 seconds. GSV measures .465 x .445 cm. cm. SSV is competent. SSV is incompetent for greater than .5 seconds. SSV measures .346 x .341 cm. Lateral ASV in the upper thigh is incompetent for greater than .5 seconds. ASV measures .873 x 1.08 cm. ASV below the knee is incompetent for greater than .5 seconds. ASV measures .259 x .285 cm. Procedure Exam performed in department. The exam was diagnostic. Interpretation Summary Deep veins of the lower extremities are bilaterally patent and compressible segmentally. There is no evidence of deep vein thrombosis on either side. Valvular competence appears intact within the proximal deep venous systems bilaterally. The greater saphenous veins appear bilaterally patent and compressible segmentally. The right sapheno-femoral junction is incompetent . The left sapheno- femoral junction is competent . Segmental valvular incompetence is noted within the greater saphenous veins bilaterally. The right small saphenous vein is patent and incompetent. The left small saphenous vein is patent and competent. The right lateral accessory saphenous vein is incompetent. The right accessory saphenous vein below the knee is incompetent. Ordering Physician: Martinez Posada Referring Physician: Martinez Posada Performed By: Caesar Chicas RVT
[2018-02-23 14:06] VITALS: BP 120/65; PULSE 73; RESP 16; TEMP 36.5
--- NOTE | 2018-02-23 15:19 | PN.PCM_ITS ---
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 Has been applying neosporin and dry dressing daily. Thought originally that the area was present due to a bad sunburn, however ulcer is a classic venous leg ulcer. Pt has a family history of varicose veins including brothers and parents. Has never had vascular testing. Did have x-rays, and we will get the results of those from the outside facility. 12/01-Ulcers improved. Tolerated moderate spandagrip size E and clau well. Refuses to get venous duplex for unknown reasons. Denies pus, malodor, warmth, pain. Denies N/V/F/C. 12/08--Ulcers improved. Tolerated spandagrip size D and clau well. Refuses to get venous duplex for unknown reasons. Denies pus, malodor, warmth, pain. Denies N/V/F/ C. 12/15--Ulcers improved, superior ulcer healed. Tolerated spandagrip size D and clau well. Refuses to get venous duplex for unknown reasons. Denies pus , malodor, warmth, pain. Denies N/V/F/C. 12/22--Ulcer improved, superior ulcer healed. Tolerated spandagrip size D and clau well. Refuses to get venous duplex for unknown reasons. Denies pus, malodor, warmth, pain. Denies N/V/F/ C. 12/29--Ulcer appears to have healed. No drainage. Using clau every other day. Used spandagrip without trouble. 02/09--Ulcer has recurred. Pt states it has been present for about 1-2 weeks. Has been applying vaseline. States he is now willing to have the venous testing done and will go to a vascular specialist. 02/16--Has been applying clau with moderate spandagrip 3x/week with improvement. Denies pus,malodor, warmth, pain, redness. Denies N/V/F/C. Venous duplex scheduled for next week. MADISON done in clinic today reveals MADISON >1 bilateral. 02/23--Has been applying clau with moderate spandagrip 3x/week with improvement. Denies pus,malodor, warmth, pain, redness. Denies N/V/F/C. Venous duplex reveals multiple incompetent veins in the RLE and single incompetent vein in the LLE. He has been referred to Dr. Cedillo for possible EVLA. Progress of Wound: improved. - Physical Exam Vital Signs Temp Pulse Resp BP 97.7 F L 73 16 120/65 02/23/18 14:06 02/23/18 14:06 02/23/18 14:06 02/23/18 14:06 General: Alert, Oriented x3, Cooperative, No apparent distress Skin: Ulcer/ Wound - R medial calf with no erythema, no calor, no purulent drainage, no malodor, minimal pain. No clinical signs of acute bacterial infection noted. See wound/edema assessment below. Wound Measurements and Assessment WC - Nurse 1 - General Ulcer Measurement Start: 02/09/18 15:01 Freq: Status: Active Protocol: Activity Type Activity Date Activity User E-Sign Co-Sign Detail Recorded Client Recorded Date Recorded By Document 02/23/18 14:06 [id number] 02/23/18 14:12 KRISTIN 02/23/18 14:06 Wound Center Nurse 1 [Ulcer Assessment] #4- RT SHIELDS INFERIOR -Combined with other wound No -Current Size (cm) - Length 2.6 -Current Size (cm) - Width 2.1 -Current Size (cm) - Depth 0.1 -Total Square Cm 5.46 -Photo Taken No -Epithelialization Small 1-33% -Tunneling No -Undermining/Tunneling No -Circular Undermining No -Exudate Amt Small (1-33%) -Exudate Type Serosanguineous -Wound Margin Flat & Intact -Granulation Amt Large (67-100%) -Granulation Quality Red -Slough/Fibrin Yes -Necrosis Amt Small (1-33%) -Necrotic Tissue Type Adherent Slough -Structure Exposed N/A -Texture (Reyna-wound Skin Appearance) Assessed Localized Edema -Moisture (Reyna-wound Skin Appearance Assessed ) Dry/Scaly -Color (Reyna-wound Skin Appearance) Assessed Hemosiderin Staining -Temperature (Reyna-wound Skin No Abnormality Appearance) (Pt Warm) -Tenderness on Palpation (Reyna-wound No Skin Appearance) -Ulcer Cleansing Rinsed/ Irrigated with Saline -Foul Odor after Cleansing No -Anesthetic Used 5% Lidocaine Gel #3- RT SHIELDS SUPERIOR -Combined with other wound No -Current Size (cm) - Length 0.1 -Current Size (cm) - Width 0.1 -Current Size (cm) - Depth 0.1 -Total Square Cm 0.01 -Photo Taken No -Epithelialization Large 67-100% -Tunneling No -Undermining/Tunneling No -Circular Undermining No -Exudate Amt None Present (0 %) -Wound Margin Indistinct, Non -Visible -Granulation Amt None Present (0 %) -Slough/Fibrin Yes -Necrosis Amt Large (67-100%) -Necrotic Tissue Type Adherent Slough -Structure Exposed N/A -Texture (Reyna-wound Skin Appearance) Assessed Localized Edema Scarring -Moisture (Reyna-wound Skin Appearance Assessed ) Dry/Scaly -Color (Reyna-wound Skin Appearance) Assessed Hemosiderin Staining -Temperature (Reyna-wound Skin No Abnormality Appearance) (Pt Warm) -Tenderness on Palpation (Reyna-wound No Skin Appearance) -Ulcer Cleansing Rinsed/ Irrigated with Saline -Foul Odor after Cleansing No -Anesthetic Used 5% Lidocaine Gel [Edema Assessment] -Lower Limb Edema Present Yes -Right Calf (cm) 31.5 -Right Ankle (cm) 19.8 WC - Nurse 2 - General Ulcer CM Notes Start: 02/09/18 15:01 Freq: Status: Active Protocol: Activity Type Activity Date Activity User E-Sign Co-Sign Detail Recorded Client Recorded Date Recorded By Document 02/23/18 14:31 MW [id number] 02/23/18 14:35 MW 02/23/18 14:31 Wound Center Nurse 2 [Procedure/Treatment] #4- RT SHIELDS INFERIOR -Time 14:31 -Correct Patient Yes -Correct Side, Site, Position Yes -Correct Procedure Yes -Procedure Performed Yes -Type of Procedure Debridement -Clinical Debridement Subcutaneous -Post Debridement Size (cm) - Length 2.7 -Post Debridement Size (cm) - Width 2.1 -Post Debridement Size (cm) - Depth 0.1 -Total Square Cm 5.67 -Wound/Ulcer Outcome Not Healed -Ulcer Cleansing Rinsed/ Irrigated with Saline -Foul Odor after Cleansing No -Bioengineered Tissue No -Bleeding Controlled with Pressure -Treatment Response Procedure Tolerated Well #3- RT SHIELDS SUPERIOR -Time 14:31 -Correct Patient Yes -Correct Side, Site, Position Yes -Correct Procedure Yes -Procedure Performed No -Post Debridement Size (cm) - Length 0.1 -Post Debridement Size (cm) - Width 0.1 -Post Debridement Size (cm) - Depth 0.1 -Total Square Cm 0.01 -Wound/Ulcer Outcome Not Healed -Ulcer Cleansing Rinsed/ Irrigated with Saline -Foul Odor after Cleansing No -Bioengineered Tissue No -Bleeding Controlled with Pressure -Treatment Response Procedure Tolerated Well [See Physician Procedure note for Specifics] Pain Scale: 0-10 Numeric [Pain] -Is Patient Pain Free? Yes Debridement Note Post-Debridement Measurements/Treatment WC - Nurse 2 - General Ulcer CM Notes Start: 02/09/18 15:01 Freq: Status: Active Protocol: Activity Type Activity Date Activity User E-Sign Co-Sign Detail Recorded Client Recorded Date Recorded By Document 02/09/18 15:50 MW [id number] 02/09/18 15:54 MW Document 02/16/18 16:59 MW [id number] 02/16/18 17:02 MW Document 02/23/18 14:31 MW [id number] 02/23/18 14:35 MW 02/09/18 02/16/18 02/23/18 15:50 16:59 14:31 Wound Center Nurse 2 #4- RT SHIELDS INFERIOR -Time 15:51 16:59 14:31 -Correct Patient Yes Yes Yes -Correct Side, Site, Position Yes Yes Yes -Correct Procedure Yes Yes Yes -Procedure Performed Yes Yes Yes -Type of Procedure Debridement Debridement Debridement -Clinical Debridement Subcutaneous Subcutaneous Subcutaneous -Post Debridement Size (cm) - Length 3.1 2.6 2.7 -Post Debridement Size (cm) - Width 2.9 2.3 2.1 -Post Debridement Size (cm) - Depth 0.1 0.1 0.1 -Total Square Cm 8.99 5.98 5.67 -Wound/Ulcer Outcome Not Healed Not Healed Not Healed -Ulcer Cleansing Rinsed/ Rinsed/ Rinsed/ Irrigated with Irrigated with Irrigated with Saline Saline Saline -Foul Odor after Cleansing No No No -Bioengineered Tissue No No No -Bleeding Controlled with Pressure Pressure Pressure -Treatment Response Procedure Procedure Procedure Tolerated Well Tolerated Well Tolerated Well #3- RT SHIELDS SUPERIOR -Time 15:51 17:00 14:31 -Correct Patient Yes Yes Yes -Correct Side, Site, Position Yes Yes Yes -Correct Procedure Yes Yes Yes -Procedure Performed Yes Yes No -Type of Procedure Debridement Debridement -Clinical Debridement Subcutaneous Subcutaneous -Post Debridement Size (cm) - Length 0.7 0.3 0.1 -Post Debridement Size (cm) - Width 0.3 0.2 0.1 -Post Debridement Size (cm) - Depth 0.1 0.1 0.1 -Total Square Cm 0.21 0.06 0.01 -Wound/Ulcer Outcome Not Healed Not Healed Not Healed -Ulcer Cleansing Rinsed/ Rinsed/ Rinsed/ Irrigated with Irrigated with Irrigated with Saline Saline Saline -Foul Odor after Cleansing No No No -Bioengineered Tissue No No No -Bleeding Controlled with Pressure Pressure Pressure -Treatment Response Procedure Procedure Procedure Tolerated Well Tolerated Well Tolerated Well Pain Scale: 0-10 Numeric Is Patient Pain Free? Yes Yes Yes Wound debrided: R medial calf Laterality: Right Wound Grade/Stage: Full thickness VLU Type of Debridement: Excisional debridement Anesthesia Used: 4% Lidocaine Solution Depth: Down to and including healthy tissue, in the subcutaneous layer Percentage of wound debrided: 100 Instrument Used: 3mm curette Tissue Removed: fibrous slough Severity: Fat Layer Exposed Amount of bleeding with debridement: Mild Bleeding Controlled with: Pressure, Compression and gauze Patient tolerated procedure well Assessment/Plan Active Problems Non-pressure chronic ulcer of right calf with fat layer exposed (Acute) Localized edema (Chronic) 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 Venous duplex reviewed. Discussed importance of leg elevation, avoiding idle sitting or standing, increased activity, and taking anti-inflammatories for pain. Pt is not overweight. Venous insufficiency is likely hereditary. Referral to vascular specialist after vascular testing done--Dr. Cedillo. Monitor for redness, pus, malodor, warmth, pain, inc swelling as well as for N/V/F/C/calf pain/chest pain/ SOB and go to the ED with these. Return in 1 week.
[2018-03-02 16:18] VITALS: BP 105/57; PULSE 68; RESP 18; TEMP 37
--- NOTE | 2018-03-02 16:46 | PN.PCM_ITS ---
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 Has been applying neosporin and dry dressing daily. Thought originally that the area was present due to a bad sunburn, however ulcer is a classic venous leg ulcer. Pt has a family history of varicose veins including brothers and parents. Has never had vascular testing. Did have x-rays, and we will get the results of those from the outside facility. 12/01-Ulcers improved. Tolerated moderate spandagrip size E and clau well. Refuses to get venous duplex for unknown reasons. Denies pus, malodor, warmth, pain. Denies N/V/F/C. 12/08--Ulcers improved. Tolerated spandagrip size D and clau well. Refuses to get venous duplex for unknown reasons. Denies pus, malodor, warmth, pain. Denies N/V/F/ C. 12/15--Ulcers improved, superior ulcer healed. Tolerated spandagrip size D and clau well. Refuses to get venous duplex for unknown reasons. Denies pus , malodor, warmth, pain. Denies N/V/F/C. 12/22--Ulcer improved, superior ulcer healed. Tolerated spandagrip size D and clau well. Refuses to get venous duplex for unknown reasons. Denies pus, malodor, warmth, pain. Denies N/V/F/ C. 12/29--Ulcer appears to have healed. No drainage. Using clau every other day. Used spandagrip without trouble. 02/09--Ulcer has recurred. Pt states it has been present for about 1-2 weeks. Has been applying vaseline. States he is now willing to have the venous testing done and will go to a vascular specialist. 02/16--Has been applying clau with moderate spandagrip 3x/week with improvement. Denies pus,malodor, warmth, pain, redness. Denies N/V/F/C. Venous duplex scheduled for next week. MADISON done in clinic today reveals MADISON >1 bilateral. 02/23--Has been applying clau with moderate spandagrip 3x/week with improvement. Denies pus,malodor, warmth, pain, redness. Denies N/V/F/C. Venous duplex reveals multiple incompetent veins in the RLE and single incompetent vein in the LLE. He has been referred to Dr. Cedillo for possible EVLA. 03/02--Has been applying clau with moderate spandagrip 3x/week with improvement. Denies pus,malodor, warmth, pain, redness. Denies N/V/F/C. Venous duplex reveals multiple incompetent veins in the RLE and single incompetent vein in the LLE. He has been referred to Dr. Cedillo for possible EVLA, and is going March 24. Progress of Wound: improved. - Physical Exam Vital Signs Temp Pulse Resp BP 98.6 F 68 18 105/57 L 03/02/18 16:18 03/02/18 16:18 03/02/18 16:18 03/02/18 16:18 General: Alert, Oriented x3, Cooperative, No apparent distress Extremities: - - Multiple varicosities RLE Skin: Ulcer/ Wound - R medial calf with no erythema, no calor, no purulent drainage, no malodor, minimal pain. No clinical signs of acute bacterial infection noted. See wound/edema assessment below. Wound Measurements and Assessment WC - Nurse 1 - General Ulcer Measurement Start: 02/09/18 15:01 Freq: Status: Active Protocol: Activity Type Activity Date Activity User E-Sign Co-Sign Detail Recorded Client Recorded Date Recorded By Document 03/02/18 16:18 TM [id number] 03/02/18 16:22 TM 03/02/18 16:18 Wound Center Nurse 1 [Ulcer Assessment] #4- RT SHIELDS INFERIOR -Combined with other wound No -Current Size (cm) - Length 0.1 -Current Size (cm) - Width 0.1 -Current Size (cm) - Depth 0.1 -Total Square Cm 0.01 -Photo Taken No -Epithelialization Small 1-33% -Tunneling No -Undermining/Tunneling No -Circular Undermining No -Classification - Thickness Full Thickness without Exposed Support Structure -Exudate Amt None Present (0 %) -Wound Margin Distinct, Outline Attached -Granulation Amt None Present (0 %) -Slough/Fibrin Yes -Necrosis Amt Large (67-100%) -Necrotic Tissue Type Adherent Slough -Structure Exposed Fascia Fat Layer Exposed -Texture (Reyna-wound Skin Appearance) Scarring -Moisture (Reyna-wound Skin Appearance Dry/Scaly ) -Color (Reyna-wound Skin Appearance) Erythema Hemosiderin Staining -Temperature (Reyna-wound Skin No Abnormality Appearance) (Pt Warm) -Tenderness on Palpation (Reyna-wound No Skin Appearance) -Ulcer Cleansing Rinsed/ Irrigated with Saline -Foul Odor after Cleansing No -Anesthetic Used 5% Lidocaine Gel #3- RT SHIELDS SUPERIOR -Combined with other wound No -Current Size (cm) - Length 2.2 -Current Size (cm) - Width 2.0 -Current Size (cm) - Depth 0.1 -Total Square Cm 4.40 -Photo Taken No -Epithelialization Small 1-33% -Tunneling No -Undermining/Tunneling No -Circular Undermining No -Classification - Thickness Full Thickness without Exposed Support Structure -Exudate Amt Small (1-33%) -Exudate Type Serosanguineous -Wound Margin Distinct, Outline Attached -Granulation Amt Large (67-100%) -Granulation Quality Red -Slough/Fibrin Yes -Necrosis Amt Small (1-33%) -Necrotic Tissue Type Adherent Slough -Structure Exposed Fascia Fat Layer Exposed -Texture (Reyna-wound Skin Appearance) Scarring -Moisture (Reyna-wound Skin Appearance No Abnormality ) -Color (Reyna-wound Skin Appearance) Erythema Hemosiderin Staining -Temperature (Reyna-wound Skin No Abnormality Appearance) (Pt Warm) -Tenderness on Palpation (Reyna-wound No Skin Appearance) -Ulcer Cleansing Rinsed/ Irrigated with Saline -Foul Odor after Cleansing No -Anesthetic Used 5% Lidocaine Gel [Edema Assessment] -Lower Limb Edema Present Yes -Right Calf (cm) 30.0 -Right Ankle (cm) 21.0 Debridement Note Post-Debridement Measurements/Treatment WC - Nurse 2 - General Ulcer CM Notes Start: 02/09/18 15:01 Freq: Status: Active Protocol: Activity Type Activity Date Activity User E-Sign Co-Sign Detail Recorded Client Recorded Date Recorded By Document 02/09/18 15:50 MW [id number] 02/09/18 15:54 MW Document 02/16/18 16:59 MW [id number] 02/16/18 17:02 MW Document 02/23/18 14:31 MW [id number] 02/23/18 14:35 MW 02/09/18 02/16/18 02/23/18 15:50 16:59 14:31 Wound Center Nurse 2 #4- RT SHIELDS INFERIOR -Time 15:51 16:59 14:31 -Correct Patient Yes Yes Yes -Correct Side, Site, Position Yes Yes Yes -Correct Procedure Yes Yes Yes -Procedure Performed Yes Yes Yes -Type of Procedure Debridement Debridement Debridement -Clinical Debridement Subcutaneous Subcutaneous Subcutaneous -Post Debridement Size (cm) - Length 3.1 2.6 2.7 -Post Debridement Size (cm) - Width 2.9 2.3 2.1 -Post Debridement Size (cm) - Depth 0.1 0.1 0.1 -Total Square Cm 8.99 5.98 5.67 -Wound/Ulcer Outcome Not Healed Not Healed Not Healed -Ulcer Cleansing Rinsed/ Rinsed/ Rinsed/ Irrigated with Irrigated with Irrigated with Saline Saline Saline -Foul Odor after Cleansing No No No -Bioengineered Tissue No No No -Bleeding Controlled with Pressure Pressure Pressure -Treatment Response Procedure Procedure Procedure Tolerated Well Tolerated Well Tolerated Well #3- RT SHIELDS SUPERIOR -Time 15:51 17:00 14:31 -Correct Patient Yes Yes Yes -Correct Side, Site, Position Yes Yes Yes -Correct Procedure Yes Yes Yes -Procedure Performed Yes Yes No -Type of Procedure Debridement Debridement -Clinical Debridement Subcutaneous Subcutaneous -Post Debridement Size (cm) - Length 0.7 0.3 0.1 -Post Debridement Size (cm) - Width 0.3 0.2 0.1 -Post Debridement Size (cm) - Depth 0.1 0.1 0.1 -Total Square Cm 0.21 0.06 0.01 -Wound/Ulcer Outcome Not Healed Not Healed Not Healed -Ulcer Cleansing Rinsed/ Rinsed/ Rinsed/ Irrigated with Irrigated with Irrigated with Saline Saline Saline -Foul Odor after Cleansing No No No -Bioengineered Tissue No No No -Bleeding Controlled with Pressure Pressure Pressure -Treatment Response Procedure Procedure Procedure Tolerated Well Tolerated Well Tolerated Well Pain Scale: 0-10 Numeric Is Patient Pain Free? Yes Yes Yes Wound debrided: R medial calf Laterality: Right Wound Grade/Stage: Full thickness VLU Type of Debridement: Excisional debridement Anesthesia Used: 4% Lidocaine Solution Depth: Down to and including healthy tissue, in the subcutaneous layer Percentage of wound debrided: 100 Instrument Used: 5mm curette Tissue Removed: fibrous slough Severity: Fat Layer Exposed Amount of bleeding with debridement: Mild Bleeding Controlled with: Pressure, Compression and gauze Patient tolerated procedure well Assessment/Plan Active Problems Non-pressure chronic ulcer of right calf with fat layer exposed (Acute) Localized edema (Chronic) 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 Venous duplex reviewed. Discussed importance of leg elevation, avoiding idle sitting or standing, increased activity, and taking anti-inflammatories for pain. Pt is not overweight. Venous insufficiency is likely hereditary. Pt seeing Dr. Cedillo on 03/24. Monitor for redness, pus, malodor, warmth, pain, inc swelling as well as for N/V/F/C/calf pain/chest pain/SOB and go to the ED with these. Patient is aware today is my last day at the wound center. Return in 1 week. Call with questions or problems prior to f/u.
== END 2018-03-08 23:59 ==
LOC: WC 16:00
PROVIDERS: Family Provider Family Medicine; PCP Family Medicine; Visit Provider Nurse Practitioner Family
DX: I83.012 Varicose veins of right lower extremity with ulcer of calf (principal); L97.212 Non-pressure chronic ulcer of right calf with fat layer exposed; R60.0 Localized edema
CPT/HCPCS: 11042; 93970; 99213; G0463

== ENCOUNTER 2019-11-13 21:12 | Emergency (ER) | payer OTHER, SELFPAY ==
[2019-02-03 15:31] VITALS: BMI 18.5
[2019-11-13 21:12] VITALS: BP 135/77; PULSE 90; RESP 18; TEMP 36.7; O2SAT 98; BMI 18.6
--- NOTE | 2019-11-13 21:31 | CT_ITS ---
STUDY: CT BRAIN WITHOUT CONTRAST REASON FOR EXAM: Male, 29 years old. SORE THROAT, ACEVEDO NOW WITH EMESIS RADIATION DOSAGE (If Supplied By Facility): CTDIvol = ( 44.99 ) mGy, DLP = ( 880.47 ) mGycm TECHNIQUE: Transaxial CT imaging of the brain was performed without administration of intravenous contrast material. Individualized dose optimization techniques were used for this CT. COMPARISON: No relevant priors. FINDINGS: Normal soft tissue structures. Normal calvarium. Normal size ventricles and extra-axial spaces for the patient''s age. Normal white matter tracts of the cerebral hemispheres. Normal basal ganglia and thalami. Normal brainstem. Normal cerebellum. There is no intracranial hemorrhage. There are no findings of an acute ischemic infarction. Mucosal thickening in the maxillary sinuses bilaterally and in the ethmoid air cells. CT/Brain/Head without Contrast IMPRESSION: Sinusitis otherwise no acute disease Electronically Signed: Martinez Harkins MD at 22:31 EST , Service support ,
--- NOTE | 2019-11-13 21:32 | ED.VISSUMM ---
- ER Visit Summary Date of Service: 11/13/19 Chief Complaint: Headache with nausea History of Present Illness: The patient is a 29 M with your chronic headaches. Since this is worse than his baseline. He has had a sore throat for a week which resolved and then his chronic headache progressively worsened today associated nausea. No falls or trauma. He is on no blood thinners. Denies any sinus congestion. There is no family history of intracranial bleeds or aneurysms. He denies any fever or neck pain. No neurological symptoms. No weakness or numbness. No visual change. Physical Examination: Young Ganesh male accompanied by his parents vital signs are stable afebrile. H EENT exam is unremarkable. Posterior pharynx normal. No erythema or exudate. No trouble swallowing or breathing. Extra ocular motions are intact. Pupils are equal, round and reactive to light. No signs of trauma. No facial droop. Normal speech. Neck nontender no meningismus. No lymphadenopathy. Able to touch chin to chest. Lungs clear to auscultation bilaterally. Heart regular rhythm no murmur. Abdomen is soft nontender normal bowel sounds no peritoneal signs. Remedies moves all 4. Calves nontender no edema. 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 Dorsi plantarflexion intact. Skin exam normal no rashes. Back normal. Neurologically is awake and alert with no focal motor or sensory deficits. Fingertip to nose and [id number] all within normal limits. NIH score of 0. Test Results: CAT scan of the brain showed sinus congestion of both ethmoid and maxillary sinuses. Headache is chronic and not an acute sinusitis from his history. This was read by the radiologist reviewed by me. No acute intracranial bleed or masses. No edema. Emergency Department Course and Treatment: Patient treated with IV fluids, IV Toradol, IV Benadryl and IV Phenergan. He will be reassessed. Repeat exam at 2235 patient is starting to have resolution of his symptoms and is feeling much improved. Headache is resolving. Neurologic exam remains normal. Treatment Plan: Tylenol and Motrin for pain. Follow-up as needed. Disposition: Discharge Impression: Acute cephalgia This note was generated with [employer] dictation software. It may contain incorrect words, spelling, and punctuation that were not noted in review of the chart prior to signing ED Disposition - Plan for ED Patient: Referrals: Lorson,Haley, [employer]PER[employer]OR-C [Primary Care Provider] -
[2019-11-13] MEDS: proMETHazine 25 MG/ML Syringe 12.5 MG IV (21:40)
[2019-11-13] MEDS: DiphenhydrAMINE 50 MG/ML Syringe 25 MG IV (21:40)
[2019-11-13] MEDS: Ketorolac 30 MG/ML Syringe IV (21:40)
[2019-11-13] MEDS: 0.9% Normal Saline 1,000 ML 1000 ML IV (21:40)
--- NOTE | 2019-11-13 22:40 | ED.DEP ---
ED Disposition - Plan for ED Patient: Disposition: Home or Assisted Living Instructions: HEADACHE, Unspecified Referrals: Haley Fagan NP-C [Primary Care Provider] - 1 Week if not improving Additional Instructions: Fluids and rest. Tylenol and Motrin for pain. Follow-up if not improving.
[2019-11-13 22:48] VITALS: BP 112/74; PULSE 74; RESP 15; O2SAT 100
== END 2019-11-13 22:49 | disposition home or self-care (01) ==
PROVIDERS: Emergency Provider Emergency Medicine; Family Provider Nurse Practitioner Family; PCP Nurse Practitioner Family
DX: R51 Headache (principal); R11.0 Nausea; R09.81 Nasal congestion; F32.9 Major depressive disorder, single episode, unspecified; Z79.899 Other long term (current) drug therapy
CPT/HCPCS: 70450; 96361; 96374; 96375; 99282; J7030; A4216

== ENCOUNTER 2021-06-10 20:02 | Emergency (ER) | payer OTHER, SELFPAY ==
[2021-06-10 20:02] VITALS: BP 141/89; PULSE 98; RESP 16; TEMP 36.6; O2SAT 99; BMI 19.7
--- NOTE | 2021-06-10 22:05 | EX.ED.DYSGE1 ---
HPI History of Present Illness Chief Complaint: Headache Informant: patient Narrative Narrative: Patient is a 30-year-old male with a past medical history of migraines who presents to the emergency department for headache. He states that this has been an on and off issue over the past 2 weeks. sides of his head. This is pretty standard for his migraines. It is in the posterior aspect as well as sides of his scalp. He denies any vision issues including photophobia or blurred vision. No nausea/vomiting. No neck pain or fever/chills. He denies any chest pain or shortness of breath. He has not been taking anything for this. He currently rates his pain as a 5 out of 10. He denies any head trauma. This is not the worst headache of his life. He has been seen before in the emergency department for headaches and has had CT scans in the past. [facility] Medical History (Updated 06/10/21 @ 22:[address] Lester Bauman DO) Anxiety Chronic bronchitis Frequent headaches Heart murmur Heart valve problem History of pneumonia Recurrent infections Seasonal allergies Home Medications citalopram 40 mg PO DAILY 11/24/17 [History Last Taken Unknown] alprazolam 0.5 mg tablet 0.5 mg PO TID 02/03/19 [History Last Taken Unknown] bupropion HCl 150 mg tablet,12 hr sustained-release 150 mg PO BID 02/03/19 [History Last Taken Unknown] Allergy/AdvReac Type Severity Reaction Status Date / Time amoxicillin [From Augmentin] AdvReac Unknown Verified 06/10/21 20:04 clavulanic acid AdvReac Unknown Verified 06/10/21 20:04 [From Augmentin] Family History (Updated 02/03/19 @ 15:28 by Carol Denney) Brother Asthma Father Arthritis Social History Smoking Status: Never smoker alcohol intake: never substance use type: does not use additional social history: DOES NOT USE ASPIRIN DOES USE IBUPROFEN ROS ROS ED Constitutional Constitutional ED: Denies chills or fever(s) Eyes Eyes: Denies change in vision ENT ENT ED: Denies epistaxis or rhinorrhea Cardiovascular Cardiovascular: Denies chest pain or palpitations Respiratory/Chest Respiratory/Chest: Denies cough, dyspnea or dyspnea on exertion Gastrointestinal Gastrointestinal: Denies abdominal pain, diarrhea, nausea or vomiting Genitourinary Genitourinary ED: Denies dysuria, hematuria or urinary frequency Musculoskeletal Musculoskeletal: Denies back pain or neck pain Integumentary Denies rash Neurologic Neurologic: Reports headache(s); Denies dizziness or weakness EXAM Physical Exam Const Vital Signs: 06/10/21 20:02 Temperature 98 F Temperature Source Temporal Pulse Rate 98 Respiratory Rate 16 Blood Pressure 141/89 H Blood Pressure Mean 106 Pulse Ox 99 Oxygen Delivery Method Room Air Positive well nourished and well developed General Appearance ED: well developed and NAD HEENT Reports normocephalic, head/scalp atraumatic and moist mucous membranes Eyes PERRL and EOMs intact bilaterally Neck supple General: Negative for tenderness Resp normal respiratory effort and clear to auscultation bilaterally Auscultation: Negative for rales, rhonchi or wheezes Cardio regular rate, regular rhythm and no murmurs GI normal to inspection, nondistended, normoactive bowel sounds and non-tender Palpation: soft; Negative for guarding or rebound tenderness present Extremity normal to inspection General Extremety ED: Negative for edema or tenderness General Extremity: Negative for edema Neuro oriented x3, CN's II-XII intact bilaterally and no sensory deficits noted Sensorium / Orientation: alert Motor Exam: strength 5/5 throughout Psych mental status grossly normal Skin no rashes or lesions noted MDM MDM MDM Narrative Medical decision making narrative: Patient presents to the emergency department for headache. Does have a history of migraines. This is not the worst headache of his life. I do not feel CT imaging is indicated at this time. Low concern for subarachnoid hemorrhage. Will treat symptomatically with a dose of Toradol, Reglan and Benadryl. On reexamination patient states his headache is mildly improved. He is able to get up and walk around the room without difficulty. He is given a dose of Decadron to help with symptoms. He is given a neurology referral for close follow-up as he has been having these headaches more frequently over the past couple of months. At this time will discharge home in stable condition. Return precautions are reviewed with him. He understands and is agreeable this plan. Discharged home in stable condition. All questions are answered. Discharge Plan Triage Chief Complaint: Headache ED Provider: Lester Bauman Dx/Rx/DC Orders Clinical Impression: Migraine Instructions: Self-Care for Headaches Prescriptions: No Action alprazolam [Xanax] 0.5 mg tablet 0.5 mg PO TID RF: 0 bupropion HCl [Wellbutrin SR] 150 mg tablet sustained-release 12 hr 150 mg PO BID RF: 0 citalopram 40 MG tablet 40 mg PO DAILY RF: 0 Primary Care Provider: Care Physician,No Primary Referrals: Gm Alcazar MD [STAFF PHYSICIAN] - 3-5 Days Care Physician,No Primary [Primary Care Provider] - Disposition Disposition: Home, Self Care Discharge Date/Time: 06/10/21 23:17
[2021-06-10] MEDS: Ketorolac 15 MG/ML Vial IV (22:12)
[2021-06-10] MEDS: Metoclopramide 10 MG/2 ML Vial 5 MG IV (22:13)
[2021-06-10] MEDS: DiphenhydrAMINE 50 MG/ML Syringe 25 MG IV (22:13)
[2021-06-10] MEDS: dexAMETHasone 10 MG/ML Vial 7 MG IV (23:09)
== END 2021-06-10 23:17 | disposition home or self-care (01) ==
PROVIDERS: Emergency Provider Emergency Medicine
DX: G43.909 Migraine, unspecified, not intractable, without status migrainosus (principal); F41.9 Anxiety disorder, unspecified; Z79.899 Other long term (current) drug therapy
CPT/HCPCS: 96374; 96375; 99283; A4216

== ENCOUNTER → 2021-09-19 17:41 | Outpatient (CLI) | payer SELFPAY, OTHER ==
--- NOTE | 2021-09-19 17:44 | MRI_ITS ---
EXAM: MR HEAD WITHOUT AND WITH INTRAVENOUS CONTRAST CLINICAL INDICATION: Migraine TECHNIQUE: Multiplanar and multisequence MR images of the brain were obtained without and with intravenous contrast. This report was created using [employer] report generation technology. CONTRAST: IV DOTAREM 15 CC COMPARISON: CT head 11/13/2019. FINDINGS: BRAIN AND EXTRA-AXIAL SPACES: Unremarkable. No intra- or extra-axial hemorrhage. No evidence of acute infarct. No intracranial mass or mass effect. There is preservation of the yao/white matter interface. Posterior fossa structures are unremarkable. Ventricles are appropriate for age. No hydrocephalus. Basal cisterns are patent. SELLA: Unremarkable. Normal sella turcica, pituitary gland, infundibular stalk, optic chiasm and hypothalamus. AUDITORY SYSTEM: Unremarkable. The internal auditory canals are patent. BONES/JOINTS: Unremarkable. No discrete lytic or blastic abnormalities. SINUSES: Unremarkable as visualized. Clear. MASTOID AIR CELLS: Unremarkable as visualized. Clear. ORBITS: Unremarkable as visualized. Both globes, extraocular muscles, optic nerves and retrobulbar fat appear unremarkable. VASCULATURE: Unremarkable as visualized. Normal flow voids in the major intracranial circulation. MRI/Brain W/WO Contrast IMPRESSION: Negative MRI brain without and with intravenous contrast. Electronically Signed: Estevan Murphy MD at 19:59 EST , Service support ,
== END ==
PROVIDERS: Referring Provider Psychiatry & Neurology Neurology; Visit Provider Psychiatry & Neurology Neurology
DX: G43.109 Migraine with aura, not intractable, without status migrainosus (principal)
CPT/HCPCS: 70553; A9575